=== PATIENT | female | born 1990 | race Caucasian/White ===

== ENCOUNTER → 2020-05-23 11:01 | Outpatient (BNVA) | payer MEDICAID, SELFPAY | PROVIDERS: PCP Internal Medicine; Referring Provider Internal Medicine; Visit Provider Nurse Practitioner | DX: K27.9 Peptic ulcer, site unspecified, unspecified as acute or chronic, without hemorrhage or perforation (principal); B96.81 Helicobacter pylori [H. pylori] as the cause of diseases classified elsewhere; K21.9 Gastro-esophageal reflux disease without esophagitis; K59.04 Chronic idiopathic constipation; R11.0 Nausea; Z79.899 Other long term (current) drug therapy; Z88.0 Allergy status to penicillin | CPT/HCPCS: 99203 ==

== ENCOUNTER → 2020-06-18 11:09 | Outpatient (BNVA) | payer MEDICAID, SELFPAY | PROVIDERS: PCP Internal Medicine; Referring Provider Internal Medicine; Visit Provider Nurse Practitioner | DX: Z76.89 Persons encountering health services in other specified circumstances (principal) ==

== ENCOUNTER → 2020-08-29 11:11 | Outpatient (BNVA) | payer MEDICAID, SELFPAY | PROVIDERS: PCP Internal Medicine; Visit Provider Nurse Practitioner ==

== ENCOUNTER → 2020-12-24 11:46 | Outpatient (BNVA) | payer MEDICAID, SELFPAY | PROVIDERS: Visit Provider Nurse Practitioner ==

== ENCOUNTER → 2021-04-28 10:49 | Outpatient (BNVA) | payer MEDICAID, SELFPAY | PROVIDERS: PCP Registered Nurse Community Health; Visit Provider Nurse Practitioner ==

== ENCOUNTER 2021-05-08 11:03 | Outpatient (REF) | payer MEDICAID, SELFPAY | END 2021-05-08 11:04 | disposition home or self-care (01) | LOC: HO.LAB 11:03 | PROVIDERS: Visit Provider Internal Medicine | DX: Z20.822 Contact with and (suspected) exposure to COVID-19 (principal) | CPT/HCPCS: C9803; U0003; U0005 ==

== ENCOUNTER 2021-08-13 10:02 | Outpatient (REF) | payer MEDICAID, SELFPAY | END 2021-08-13 10:03 | disposition home or self-care (01) | LOC: HO.LAB 10:02 | PROVIDERS: Visit Provider Internal Medicine | DX: Z13.89 Encounter for screening for other disorder (principal) | CPT/HCPCS: C9803 ==

== ENCOUNTER 2022-05-20 14:40 | Outpatient (REF) | payer MEDICAID, SELFPAY ==
[2022-05-20 15:00] LABS: MANUAL DIFF FLAG NO
[2022-05-20 15:25] LABS: Basophils Percent Auto 0.3 % (0-2); Eosinophils Percent Auto 0.4 % (0-4); Hematocrit 41.2 % (37.0-47.0); Hemoglobin 14.1 g/dl (12.0-16.0); Imm Gran Abs Auto 0.04 X10*3/uL (0.00-0.03); Imm Gran Pct Auto 0.4 % (0.0-0.4); Lymphocytes Absolute Auto 2.1 X10*3/uL (1.2-4.9); Lymphocytes Percent Auto 19.9 % (20-40); Mean Corpuscular HGB Conc 34.2 g/dl (31.0-35.0); Mean Corpuscular Hemoglobin 31.6 pg (27.0-33.0); Mean Corpuscular Volume 92.4 fL (80.0-98.0); Mean Platelet Volume 10.5 fL (9.4-12.3); Monocytes Absolute Auto 0.6 X10*3/uL (0.1-1.2); Monocytes Percent Auto 5.8 % (2-11); Neutrophils Absolute Auto 7.6 x10*3/uL (2.0-8.3); Neutrophils Percent Auto 73.2 % (45-73); Platelet Count 242 X10*3/uL (160-400); Red Blood Count 4.46 X10*6/uL (4.20-5.50); White Blood Count 10.4 X10*3/uL (4.8-10.8)
[2022-05-20 15:47] LABS: Alanine Aminotransferase 18 U/L (0-31); Albumin Level 4.8 g/dL (3.5-5.0); Alkaline Phosphatase 70 U/L (39-117); Anion Gap 16 (12-20); Aspartate Amino Transferase 18 U/L (5-31); Bilirubin Total 0.9 mg/dL (0.0-1.0); Blood Urea Nitrogen 7 mg/dL (9-16); Calcium 9.8 mg/dL (8.4-10.2); Carbon Dioxide 24 mmol/L (22-29); Chloride 106 mmol/L (96-108); Estimated Glomerular Filt Rate > 60; Glucose Random 93 mg/dL (60-115); Sodium 142 mmol/L (135-145); Total Protein 7.5 g/dL (6.5-8.0)
== END 2022-05-20 14:41 | disposition home or self-care (01) ==
LOC: HO.LAB 14:40
PROVIDERS: Visit Provider Nurse Practitioner
DX: K58.9 Irritable bowel syndrome, unspecified (principal); K59.04 Chronic idiopathic constipation; K27.9 Peptic ulcer, site unspecified, unspecified as acute or chronic, without hemorrhage or perforation; B96.81 Helicobacter pylori [H. pylori] as the cause of diseases classified elsewhere; K21.9 Gastro-esophageal reflux disease without esophagitis; F11.20 Opioid dependence, uncomplicated
CPT/HCPCS: 36415; 80053; 85025; 99212

== ENCOUNTER 2022-06-23 09:00 | Emergency (ER) | payer MEDICAID, SELFPAY ==
[2022-06-23 09:08] VITALS: BP 111/67; PULSE 54; RESP 18; TEMP 37; O2SAT 100; BMI 34.9
--- NOTE | 2022-06-23 09:42 | ED_ITS ---
HPI - Nausea/Vomiting/Diarrhea General Chief complaint: Nausea/Vomiting/Diarrhea Stated complaint: COVID+/Vomiting Time Seen by Provider: 06/23/22 09:10 Source: patient Mode of arrival: ambulatory Limitations: no limitations History of Present Illness HPI Narrative: 31-year-old female recently diagnosed with COVID presented today for nausea, vomiting for the past 2 days, unable to keep anything down, unable to take her methadone and her medication. Patient is known to have GERD complaining of mild epigastric pain, no diarrhea, no fever, no chills, no coughing. Related Data Home Medications Medication Instructions Recorded Confirmed methadone PO DAILY 12/24/20 hydroxyzine HCl 25 mg tablet 25 mg PO BID PRN 05/20/22 omeprazole 20 mg capsule,delayed 20 mg PO DAILY 05/20/22 release valacyclovir 500 mg tablet 500 mg PO TID 05/20/22 Previous Rx's Medication Instructions Recorded hyoscyamine sulfate 0.125 mg tablet 0.125 mg PO BID-QID PRN dyspepsia 05/20/22 #120 tabs linaclotide 145 mcg capsule 145 mcg PO QAM 30 days #30 caps 05/20/22 (Linzess) promethazine 25 mg tablet 25 mg PO DAILY nausea and vomiting 05/20/22 #30 tabs Allergies Allergy/AdvReac Type Severity Reaction Status Date / Time amoxicillin [AMOXICILLIN] Allergy Intermediate HIVES, Verified 05/20/22 13:51 hives (moderate) ondansetron [Zofran] AdvReac Unknown headaches Verified 05/20/22 13:51 Review of Systems Review of Systems: All other systems are reviewed and are negative Constitutional: Reports as per HPI and Reports no additional constitutional complaints Eyes: Reports as per HPI and Reports no additional eye complaints Reports system reviewed and no additional complaints, except as documented Cardiovascular: Reports as per HPI and Reports no additional cardiovascular complaints Respiratory: Reports as per HPI and Reports no additional respiratory complaints Gastrointestinal: Reports as per HPI and Reports no additional gastrointestinal complaints Genitourinary: Reports no additional female genitourinary complaints Musculoskeletal: Reports no additional musculoskeletal complaints Skin/Breast: Reports system reviewed and no additional complaints, except as docu Psychiatric: Reports no additional psychiatric complaints Endocrine: Reports no additional endocrine complaints Hematologic/Lymphatic: Reports no additional hematologic/lymphatic complaints Allergic/Immunologic: Reports no additional allergic/immunologic complaints Reports system reviewed and no additional complaints, except as documented and Reports Abnormal speech present [facility] Past Medical History Medical History Heroin abuse Surgical History History of esophagogastroduodenoscopy (EGD) Family History Family History Father Throat cancer Tuberculosis Mother No problems noted. Brother Autistic disorder Spina bifida of lumbar spine Paternal Grandmother Breast cancer Social History Social History Household Members: Spouse and Children Alcohol intake: never Smoked in Last 30 Days: Yes Use of substances other than those prescribed or required for medical reasons: No Substance Use Type: Marijuana Advance Directives: No Advance Directives Information Provided: Yes Patient : No service: No Current occupational status: unemployed Physical Exam Vital Signs: Vital Signs: Last Vital Signs Temp 98.6 F 06/23/22 09:08 Pulse 54 06/23/22 09:08 Resp 18 06/23/22 09:08 BP 111/67 06/23/22 09:08 Pulse Ox 100 06/23/22 09:08 O2 Del Method 06/23/22 09:08 BMI result Body Mass Index 34.9 Vital signs have been reviewed as appeared to be correct. Blood pressure normal. Heart rate normal. Respiration rate normal. Temperature normal. Oxygen saturation normal. Appearance: Alert. Oriented X3. No acute distress. Head: Normal external exam. Normocephalic. Atraumatic. No Hoffmann signs noted. No raccoon eyes noted Eyes: PERRLA. EOMI. Conjunctiva and sclera normal. Eyelids normal. ENT: TM's Normal. Pharynx normal. Uvula midline. Moist mucous membranes. No trismus noted. No drooling noted. No muffled voice noted. Neck: Normal inspection. Neck supple. FROM. No adenopathy. Thyroid Normal. No meningeal signs. No neck mass noted. CVS: Normal heart rate and rhythm. Heart sound normal. No murmurs noted. Pulses normal throughout. Respiratory: No respiratory distress. Painless inspiration. Breath sounds normal. No wheezes/rales/rhonchi noted. Chest nontender. No accessory muscle usage noted or decreased air movement noted. Abdomen: Soft and nontender. Bowel sounds normal in all 4 quadrants. No distention noted. No organomegaly noted. No visible injury noted. Back: No CVA tenderness. Full range of motion noted. Skin: Skin warm and dry. Normal skin color. Normal skin turgor. No rashes/lesions/lacerations noted. Extremities: No lower extremity edema. Extremities exhibit normal range of motion. Extremities nontender. Neuro: Oriented X 3. Cranial nerve exam: II-XII are grossly intact No motor deficit. No sensory deficit. Reflexes normal. Course Course Course Narrative: 31-year-old female recently diagnosed with COVID presented today because she is unable to keep p.o. intake and persistent vomiting, patient has difficult IV access after 3 different nurses attempt IV was successfully inserted but patient demanded to take it out, patient insisting not to try another attempt for IV even with ultrasound, patient understand that IV is necessary to treat her dehydration and symptoms. Patient requesting to leave despite knowing downside of leaving without full evaluation and labs assessment, patient will be signing against medical advice patient is awake, alert, oriented x3. Medications Administered Discontinued Medications Generic Name Dose Route Start Last Admin Trade Name Freq PRN Reason Stop Dose Admin Acetaminophen 650 mg 06/23/22 09:32 06/23/22 10:33 Acetaminophen 325 Mg Tablet PO 06/23/22 09:33 650 mg ONCE ONE Administration Al Hydroxide/Mg Hydroxide 30 ml 06/23/22 09:29 06/23/22 10:34 Magnesium Hydrox/Alum Hydrox 30 Ml Oral.Susp PO 06/23/22 09:30 30 ml ONCE ONE Administration MDM - Nausea/Vomiting/Diarrhea Lab Data Result diagrams: 06/23/22 10:51 06/23/22 10:51 Discharge Plan Discharge Clinical Impression: Vomiting Patient Disposition: Left Against Medical Advice Prescriptions: No Action methadone liquid PO DAILY omeprazole 20 mg capsule,delayed release(DR/EC) 20 mg PO DAILY valacyclovir 500 mg tablet 500 mg PO TID hydroxyzine HCl 25 mg tablet 25 mg PO BID PRN hyoscyamine sulfate 0.125 mg tablet 0.125 mg PO BID-QID PRN (Reason: dyspepsia) Qty: 120 3RF promethazine 25 mg tablet 25 mg PO DAILY Qty: 30 3RF Linzess 145 mcg capsule 145 mcg PO QAM 30 Days Qty: 30 3RF
--- NOTE | 2022-06-23 10:00 | PC.NURSE ---
pt is a/o x 4 no sob/reed noted speaks in full sentences. lungs - cta. heart sounds regular. abd soft and non-tender. pt c/o gen muscle pain states pain is 10/10. no edema noted. pt states that she is covid +. pt c/o general malaise 2-3 days.
[2022-06-23] MEDS: Acetaminophen 325 MG TABLET 650 MG PO (10:33)
[2022-06-23] MEDS: Magnesium Hydrox/Alum Hydrox 30 ML ORAL.SUSP PO (10:34)
[2022-06-23 11:27] LABS: Influenza A PCR NEGATIVE (Negative); Influenza B PCR NEGATIVE (Negative); Resp Syncy Virus RNA Qual PCR NEGATIVE (Negative); SARS COV2 PCR INHOUSE POSITIVE (Negative)
== END 2022-06-23 11:31 | disposition home or self-care (01) ==
PROVIDERS: Emergency Provider Emergency Medicine; PCP Registered Nurse Community Health
DX: U07.1 COVID-19 (principal); R11.2 Nausea with vomiting, unspecified
CPT/HCPCS: 0241U; 80048; 80076; 83690; 85025; 99283; 99284

== ENCOUNTER 2023-05-11 18:38 | Emergency (ER) | payer MEDICAID, SELFPAY ==
[2023-05-11 19:42] VITALS: BP 119/71; PULSE 71; RESP 19; TEMP 36.5; O2SAT 100; BMI 31.2
--- NOTE | 2023-05-11 19:43 | ED.ANIMALBIT ---
HPI - Animal Bite General Stated Complaint: Cat bite tp L hand/Swelling Related Data Home Medications Medication Instructions Recorded Confirmed methadone PO DAILY 12/24/20 hydroxyzine HCl 25 mg tablet 25 mg PO BID PRN 05/20/22 omeprazole 20 mg capsule,delayed 20 mg PO DAILY 05/20/22 release valacyclovir 500 mg tablet 500 mg PO TID 05/20/22 Previous Rx's Medication Instructions Recorded hyoscyamine sulfate 0.125 mg tablet 0.125 mg PO BID-QID PRN dyspepsia 05/20/22 #120 tabs linaclotide 145 mcg capsule 145 mcg PO QAM 30 days #30 caps 05/20/22 (Linzess) promethazine 25 mg tablet 25 mg PO DAILY nausea and vomiting 05/20/22 #30 tabs Allergies Allergy/AdvReac Type Severity Reaction Status Date / Time amoxicillin [AMOXICILLIN] Allergy Intermediate HIVES, Verified 05/20/22 13:51 hives (moderate) ondansetron [Zofran] AdvReac Unknown headaches Verified 05/20/22 13:51 PMFSH Past Medical History Medical History Heroin abuse Surgical History History of esophagogastroduodenoscopy (EGD) Family History Family History Father Throat cancer Tuberculosis Mother No problems noted. Brother Autistic disorder Spina bifida of lumbar spine Paternal Grandmother Breast cancer Social History Social History Household Members: Spouse and Children Alcohol intake: never Substance Use Type: Marijuana service: No Current occupational status: unemployed Course Course Course Narrative: This is an RME: Additional HPI, ROS, PE not included below will be deferred to primary provider. This is a [id number]-female, with a hx of opioid use disorder on methadone 120mg, presenting to the emergency department with a complaint of cat bite to left hand x 2 days. The cat was a stray cat - unsure of vaccine status. Reporting significant pain in her left hand, unable to make a fist. Patient reporting that she is much more tired than she normally is. No known fevers or chills. Left hand for family swollen with erythema and warmth. Unable to make a fist. Exquisitely tender. Plan: Labs, xr hand, tdap, rabies series Discharge Plan Discharge Prescriptions: No Action methadone liquid PO DAILY omeprazole 20 mg capsule,delayed release(DR/EC) 20 mg PO DAILY valacyclovir 500 mg tablet 500 mg PO TID hydroxyzine HCl 25 mg tablet 25 mg PO BID PRN hyoscyamine sulfate 0.125 mg tablet 0.125 mg PO BID-QID PRN (Reason: dyspepsia) Qty: 120 3RF promethazine 25 mg tablet 25 mg PO DAILY Qty: 30 3RF Linzess 145 mcg capsule 145 mcg PO QAM 30 Days Qty: 30 3RF
--- NOTE | 2023-05-11 20:25 | MHC.EDTECH ---
Labs and both sets of blood cultures were obtained in triage area sent to lab and patient back to waiting room.
[2023-05-11 20:45] LABS: Alanine Aminotransferase 9 U/L (0-31); Albumin Level 3.9 g/dL (3.5-5.0); Alkaline Phosphatase 63 U/L (39-117); Anion Gap 15 (12-20); Aspartate Amino Transferase 13 U/L (5-31); Bilirubin Direct 0.2 mg/dL (0.0-0.5); Bilirubin Total 0.4 mg/dL (0.0-1.0); Blood Urea Nitrogen 6 mg/dL (9-16); Calcium 9.1 mg/dL (8.4-10.2); Carbon Dioxide 26 mmol/L (22-29); Chloride 103 mmol/L (96-108); Creatinine Clr Calc Pharmacy 126.9; Estimated Glomerular Filt Rate > 60; Glucose Random 79 mg/dL (60-115); Potassium 3.7 mmol/L (3.3-5.1); Sodium 140 mmol/L (135-145); Total Protein 6.5 g/dL (6.5-8.0)
--- NOTE | 2023-05-11 23:06 | PC.NURSE ---
pt reports date of exposure as 05/07/23, pt was feeding stray cats on her porch, tried to pet cat and was bitten. bite report faxed to [employer] [facility], Lot# [id number], Exp: 03/09/2025, 5.9ml given between R/L thigh, pt tolerated well. Rabies Vax given right deltoid per SEP, pt tolerated well. RIG and Rabies VIS education handouts given to pt along with rabies immunization card, photocopied order, and instructions for contacting short stay. pt resting quietly, pending ED provider.
--- NOTE | 2023-05-11 23:28 | PC.NURSE ---
rabies vaccine order set faxed to short stay and pharmacy.
[2023-05-12 00:49] VITALS: BP 136/72; PULSE 63; RESP 20; TEMP 36.6; O2SAT 98
--- NOTE | 2023-05-12 01:01 | ED.ANIMALBIT ---
HPI - Animal Bite General Chief Complaint: Animal Bite Stated Complaint: Cat bite tp L hand/Swelling Time Seen by Provider: 05/12/23 00:41 Source: patient Mode of arrival: ambulatory Limitations: no limitations History of Present Illness HPI narrative: Patient apparently was feeling a stray cat 2 days ago and a brochure her and she bit her on her dorsum of the left hand patient washed the hand orally today she comes as she been having pain and swelling with redness for last 24 hours no fever no chills CT was stray cat unlikely patient can watch the cat. Related Data Home Medications Medication Instructions Recorded Confirmed methadone PO DAILY 12/24/20 hydroxyzine HCl 25 mg tablet 25 mg PO BID PRN 05/20/22 omeprazole 20 mg capsule,delayed 20 mg PO DAILY 05/20/22 release valacyclovir 500 mg tablet 500 mg PO TID 05/20/22 Previous Rx's Medication Instructions Recorded hyoscyamine sulfate 0.125 mg tablet 0.125 mg PO BID-QID PRN dyspepsia 05/20/22 #120 tabs linaclotide 145 mcg capsule 145 mcg PO QAM 30 days #30 caps 05/20/22 (Linzess) promethazine 25 mg tablet 25 mg PO DAILY nausea and vomiting 05/20/22 #30 tabs clindamycin HCl 300 mg capsule 300 mg PO TID #30 caps 05/12/23 doxycycline hyclate 100 mg tablet 100 mg PO BID #20 tabs 05/12/23 ibuprofen 600 mg tablet 600 mg PO Q6H PRN fever or pain 05/12/23 #30 tabs Allergies Allergy/AdvReac Type Severity Reaction Status Date / Time amoxicillin [AMOXICILLIN] Allergy Intermediate HIVES, Verified 05/20/22 13:51 hives (moderate) ondansetron [Zofran] AdvReac Unknown headaches Verified 05/20/22 13:51 Review of Systems Review of Systems: Yes all other systems are reviewed and are negative PMFSH Past Medical History Medical History Heroin abuse Surgical History History of esophagogastroduodenoscopy (EGD) Family History Family History Father Throat cancer Tuberculosis Mother No problems noted. Brother Autistic disorder Spina bifida of lumbar spine Paternal Grandmother Breast cancer Social History Social History Household Members: Spouse and Children Alcohol intake: never Substance Use Type: Marijuana service: No Current occupational status: unemployed Physical Exam ED Vital Signs: Vital Signs - 24 hr 05/12/23 00:49 Temperature 97.8 F Pulse Rate 63 Respiratory Rate 20 Blood Pressure 136/72 Pulse Oximetry 98 Oxygen Delivery Method Room Air BMI result Body Mass Index 31.2 Appearance: Alert. Oriented X3. No acute distress. CVS: Normal heart rate and rhythm. Pulses normal. Respiratory: No respiratory distress. Equal air entry bilateral, Abdomen: Soft and nontender. Skin: Skin warm and dry. Normal skin color. Normal skin turgor. Extremities: No lower extremity edema. No calf tenderness left hand swollen on the dorsum with cat bite no signs of tenosynovitis patient had good passive and active movement of the finger neurovascular intact Neuro: Oriented X 3. No motor deficit. Medications Administered Discontinued Medications Generic Name Dose Route Start Last Admin Trade Name Freq PRN Reason Stop Dose Admin Clindamycin HCl 300 mg 05/12/23 00:59 05/12/23 02:01 Clindamycin Hcl 300 Mg Capsule PO 05/12/23 01:00 300 mg ONCE ONE Administration Diphtheria/Tetanus/Acell Pertussis 0.5 ml 05/11/23 19:46 05/11/23 22:51 Diphth,Pertus(Acell),Tet Adult 0.5 Ml Syringe IM 05/11/23 19:47 Not Given .ONCE ONE Doxycycline Monohydrate 100 mg 05/12/23 00:59 05/12/23 02:01 Doxycycline Monohydrate 100 Mg Capsule PO 05/12/23 01:00 100 mg ONCE ONE Administration Rabies Immune Globulin 1,756 unit 05/11/23 19:49 05/11/23 22:51 Rabies Immune Globulin/Pf 900 Unit/3 Ml Vial 20 unit/kg (1756 unit) 05/11/23 19:50 1,756 unit IM Administration ONCE ONE Rabies Vaccine Human Diploid Cell 1 ml 05/11/23 19:49 05/11/23 22:53 Rabies Vaccine, Human Diploid (Imovax) 1 Ml Vial IM 05/11/23 19:50 1 ml .ONCE ONE Administration Medical Decision Making Medical Decision Making [facility] Narrative: Patient status post can stray cat bite was give rabies vaccination and tetanus shot no signs of tenosynovitis /deep infection x-ray negative for bony involvement will give patient doxycycline clindamycin as patient is allergic to amoxicillin Lab Data [facility] Lab Attestation statement: I reviewed the patient's lab results. 05/11/23 20:18 05/11/23 20:18 Labs: Lab Results 05/11/23 Range/Units 20:18 WBC 8.3 (4.8-10.8) X10*3/uL RBC 3.43 L D (4.20-5.50) X10*6/uL Hgb 11.1 L D (12.0-16.0) g/dl Hct 33.0 L (37.0-47.0) % MCV 96.2 (80.0-98.0) fL MCH 32.4 (27.0-33.0) pg MCHC 33.6 (31.0-35.0) g/dl RDW 13.6 (11.0-16.0) % Plt Count 186 (160-400) X10*3/uL MPV 10.6 (9.4-12.3) fL Immature Gran % (Auto) 0.4 (0.0-0.4) % Neut % (Auto) 62.4 (45-73) % Lymph % (Auto) 25.7 (20-40) % [place] % (Auto) 10.0 (2-11) % Eos % (Auto) 1.1 (0-4) % Baso % (Auto) 0.4 (0-2) % Lymph # (Auto) 2.1 (1.2-4.9) X10*3/uL [place] # (Auto) 0.8 (0.1-1.2) X10*3/uL Eos # (Auto) 0.1 (0.0-0.4) X10*3/uL Baso # (Auto) 0.0 (0.0-0.2) X10*3/uL Abs Immat Gran (auto) 0.03 (0.00-0.03) X10*3/uL Absolute Neuts (auto) 5.2 (2.0-8.3) x10*3/uL Absolute Nucleated RBC 0.000 (0.0-0.012) X10*3/uL Nucleated RBC % (auto) 0.0 (0.0-0.2) /100WBC Sodium 140 (135-145) mmol/L Potassium 3.7 (3.3-5.1) mmol/L Chloride 103 (96-108) mmol/L Carbon Dioxide 26 (22-29) mmol/L Anion Gap 15 (12-20) BUN 6 L (9-16) mg/dL Creatinine 0.71 (0.5-1.4) mg/dL Estim Creat Clear Calc 126.9 Estimated GFR > 60 Random Glucose 79 (60-115) mg/dL Lactic Acid 0.4 L (0.5-2.0) mmol/L Calcium 9.1 D (8.4-10.2) mg/dL Total Bilirubin 0.4 (0.0-1.0) mg/dL Direct Bilirubin 0.2 (0.0-0.5) mg/dL AST 13 (5-31) U/L ALT 9 (0-31) U/L Alkaline Phosphatase 63 (39-117) U/L Total Protein 6.5 (6.5-8.0) g/dL Albumin 3.9 (3.5-5.0) g/dL Discharge Plan Discharge Clinical Impression: Cat bite Patient Disposition: Home, Self-Care Instructions: Animal Bite (ED), Rabies (ED) Additional Instructions: Take antibiotic as prescribed Keep right hand elevated Report to the ER if worsening of the swelling or pain Rabies shot as advised to prevent rabies Prescriptions: New doxycycline hyclate 100 mg tablet 100 mg PO BID Qty: 20 0RF clindamycin HCl 300 mg capsule 300 mg PO TID Qty: 30 0RF ibuprofen 600 mg tablet 600 mg PO Q6H PRN (Reason: fever or pain) Qty: 30 0RF No Action methadone liquid PO DAILY omeprazole 20 mg capsule,delayed release(DR/EC) 20 mg PO DAILY valacyclovir 500 mg tablet 500 mg PO TID hydroxyzine HCl 25 mg tablet 25 mg PO BID PRN hyoscyamine sulfate 0.125 mg tablet 0.125 mg PO BID-QID PRN (Reason: dyspepsia) Qty: 120 3RF promethazine 25 mg tablet 25 mg PO DAILY Qty: 30 3RF Linzess 145 mcg capsule 145 mcg PO QAM 30 Days Qty: 30 3RF Interventions: ED Discharge Assessment Last Done: 05/12/23 02:04 Discharge Date/Time: 05/12/23 02:05
== END 2023-05-12 02:05 | disposition home or self-care (01) ==
PROVIDERS: Physician Assistant Medical; Emergency Provider Internal Medicine
DX: S61.452A Open bite of left hand, initial encounter (principal); M79.642 Pain in left hand; W55.01XA Bitten by cat, initial encounter; Y93.9 Activity, unspecified; Y92.9 Unspecified place or not applicable; Y99.9 Unspecified external cause status; Z23 Encounter for immunization; Z79.899 Other long term (current) drug therapy
CPT/HCPCS: 36415; 73130; 80048; 80076; 83605; 85025; 87040; 90375; 90471; 90675; 96372; 99283; 99284

== ENCOUNTER 2023-05-14 12:47 | Outpatient (REF) | payer MEDICAID, SELFPAY | END 2023-05-14 12:48 | disposition home or self-care (01) | LOC: HO.MDS 12:47 | PROVIDERS: Visit Provider Physician Assistant Medical | DX: Z20.3 Contact with and (suspected) exposure to rabies (principal); S61.452D Open bite of left hand, subsequent encounter; W55.01XD Bitten by cat, subsequent encounter | CPT/HCPCS: 90471; 90675 ==

== ENCOUNTER 2023-05-18 12:43 | Outpatient (REF) | payer MEDICAID, SELFPAY | END 2023-05-18 12:44 | disposition home or self-care (01) | LOC: HO.MDS 12:43 | PROVIDERS: Visit Provider Physician Assistant Medical | DX: Z20.3 Contact with and (suspected) exposure to rabies (principal); T14.8XXD Other injury of unspecified body region, subsequent encounter; W64.XXXD Exposure to other animate mechanical forces, subsequent encounter | CPT/HCPCS: 90471; 90675 ==

== ENCOUNTER 2023-05-25 12:27 | Outpatient (REF) | payer MEDICAID, SELFPAY | END 2023-05-25 12:28 | disposition home or self-care (01) | LOC: HO.MDS 12:27 | PROVIDERS: Visit Provider Physician Assistant Medical | DX: Z20.3 Contact with and (suspected) exposure to rabies (principal); T14.8XXD Other injury of unspecified body region, subsequent encounter; W64.XXXD Exposure to other animate mechanical forces, subsequent encounter | CPT/HCPCS: 90471; 90675 ==

== ENCOUNTER 2023-06-03 23:07 | Emergency (ER) | payer MEDICAID, SELFPAY ==
[2023-06-03 23:27] VITALS: BP 125/77; PULSE 79; RESP 20; TEMP 36.7; O2SAT 99; BMI 30.8
[2023-06-03 23:42] LABS: IDNOW Serial# 08D9AD1C; Strep A Nucleic Acid Positive (Negative)
[2023-06-03 23:49] LABS: COVID-19 Test Negative (Negative); IDNOW Serial# BCCEAD1C
--- NOTE | 2023-06-04 00:58 | ED.GENADULT ---
HPI - General Adult General Chief complaint: General Medical Stated complaint: Sore throat Time Seen by Provider: 06/04/23 00:38 Source: patient, family, RN notes reviewed and old records reviewed Mode of arrival: ambulatory Limitations: no limitations History of Present Illness HPI narrative: 32-year-old female presents for evaluation of a sore throat. She reports that her symptoms started earlier today. Denies any fevers or chills. Her feel liver is here with symptoms that started 3 days ago. Patient denies any cough, shortness of breath or any other symptoms. She is able to swallow. No other complaints or concerns at this time Related Data Home Medications Medication Instructions Recorded Confirmed methadone PO DAILY 12/24/20 hydroxyzine HCl 25 mg tablet 25 mg PO BID PRN 05/20/22 omeprazole 20 mg capsule,delayed 20 mg PO DAILY 05/20/22 release valacyclovir 500 mg tablet 500 mg PO TID 05/20/22 Previous Rx's Medication Instructions Recorded hyoscyamine sulfate 0.125 mg tablet 0.125 mg PO BID-QID PRN dyspepsia 05/20/22 #120 tabs linaclotide 145 mcg capsule 145 mcg PO QAM 30 days #30 caps 05/20/22 (Linzess) promethazine 25 mg tablet 25 mg PO DAILY nausea and vomiting 05/20/22 #30 tabs clindamycin HCl 300 mg capsule 300 mg PO TID #30 caps 05/12/23 doxycycline hyclate 100 mg tablet 100 mg PO BID #20 tabs 05/12/23 ibuprofen 600 mg tablet 600 mg PO Q6H PRN fever or pain 05/12/23 #30 tabs azithromycin 250 mg tablet See Rx Instructions PO .COMPLEX #6 06/04/23 tabs Allergies Allergy/AdvReac Type Severity Reaction Status Date / Time amoxicillin [AMOXICILLIN] Allergy Intermediate HIVES, Verified 05/20/22 13:51 hives (moderate) ondansetron [Zofran] AdvReac Unknown headaches Verified 05/20/22 13:51 Review of Systems Constitutional: Constitutional: Denies chills and Denies fever(s) ENT: Reports sore throat and Denies throat swelling Cardiovascular: Cardiovascular: Denies dyspnea Respiratory: Respiratory: Denies cough and Denies dyspnea Gastrointestinal: Gastrointestinal: Denies vomiting Allergic/Immunologic: Allergic/Immunologic: Denies throat swelling PMFSH Past Medical History Medical History Heroin abuse Surgical History History of esophagogastroduodenoscopy (EGD) Family History Family History Father Throat cancer Tuberculosis Mother No problems noted. Brother Autistic disorder Spina bifida of lumbar spine Paternal Grandmother Breast cancer Social History Social History Household Members: Spouse and Children Alcohol intake: never Substance Use Type: Marijuana Advance Directives: No Advance Directives Information Provided: Yes service: No Current occupational status: unemployed Physical Exam ED Vital Signs: Vital Signs - 24 hr 06/03/23 23:27 Temperature 98.1 F Pulse Rate 79 Respiratory Rate 20 Blood Pressure 125/77 Pulse Oximetry 99 Oxygen Delivery Method Room Air BMI result Body Mass Index 30.8 Const General: healthy appearing, comfortable, no acute distress, alert and awake Nutritional Appearance: well nourished Orientation/consciousness: patient oriented x3 HENMT Other: Mildly erythematous oropharynx, no exudates. Airway is widely patent Head: Yes normocephalic and Yes atraumatic Eyes Eyelids: Yes eyelids normal Conjunctivae: conjunctivae normal Sclerae: sclerae normal Corneas: corneas normal Pupils: Equal, round and reactive pupils present EOM: EOMs intact bilaterally Neck Neck: Yes full ROM Resp Effort & Inspection: normal respiratory effort, able to speak in complete sentences and not labored Skin General skin exam: elasticity normal Neuro General: patient oriented x3 Cranial nerves: Yes Equal, round and reactive pupils present and Yes Bilaterally intact EOM present Cognition (Neuro): normal cognition Extrem Other: Moving all extremities well without any obvious deformities Medical Decision Making Medical Decision Making MDM Narrative: 32-year-old female presents for evaluation of sore throat. She has no evidence of respiratory distress. Airway is widely patent. She does have positive for strep throat. Will treat with azithromycin due to penicillin allergy. Differential Diagnosis Differential Diagnoses: The differential diagnosis associated with the presentation includes Strep pharyngitis Pharyngitis Viral syndrome Upper respiratory infection Lab Data Labs: Lab Results 06/03/23 Range/Units 23:25 COVID-19 (MICAELA) Negative (Negative) COVID-19 Clin Com See Note S. pyogenes GrpA MONIE Positive A (Negative) Discharge Plan Discharge Clinical Impression: Acute streptococcal pharyngitis Patient Disposition: Home, Self-Care Instructions: Strep Throat (ED) Additional Instructions: Take azithromycin as prescribed. Use ibuprofen/Tylenol as needed for pain, fevers. You may also use salt water gargles You should get a new toothbrush after your last dose of antibiotic Return for new or worsening symptoms Prescriptions: New azithromycin 250 mg tablet See Rx Instructions .ROUTE .COMPLEX Qty: 6 0RF Rx Instructions: For 250 mg dose pack: take 500 mg today (day 1), then 250 mg for 4 days (days 2-5) No Action doxycycline hyclate 100 mg tablet 100 mg PO BID Qty: 20 0RF clindamycin HCl 300 mg capsule 300 mg PO TID Qty: 30 0RF ibuprofen 600 mg tablet 600 mg PO Q6H PRN (Reason: fever or pain) Qty: 30 0RF methadone liquid PO DAILY omeprazole 20 mg capsule,delayed release(DR/EC) 20 mg PO DAILY valacyclovir 500 mg tablet 500 mg PO TID hydroxyzine HCl 25 mg tablet 25 mg PO BID PRN hyoscyamine sulfate 0.125 mg tablet 0.125 mg PO BID-QID PRN (Reason: dyspepsia) Qty: 120 3RF promethazine 25 mg tablet 25 mg PO DAILY Qty: 30 3RF Linzess 145 mcg capsule 145 mcg PO QAM 30 Days Qty: 30 3RF
== END 2023-06-04 01:18 | disposition home or self-care (01) ==
PROVIDERS: Emergency Provider Student in an Organized Health Care Education/Training Program
DX: J02.0 Streptococcal pharyngitis (principal); Z11.52 Encounter for screening for COVID-19; Z20.822 Contact with and (suspected) exposure to COVID-19; Z79.899 Other long term (current) drug therapy
CPT/HCPCS: 87635; 87651; 99282; 99283

== ENCOUNTER 2023-11-28 22:31 | Emergency (ER) | payer MEDICAID, SELFPAY ==
[2023-11-28 22:34] VITALS: BP 118/85; PULSE 74; RESP 16; TEMP 37.2; O2SAT 98; BMI 35.1
--- NOTE | 2023-11-28 23:52 | ED.ANIMALBIT ---
HPI - Animal Bite General Chief Complaint: Animal Bite Stated Complaint: bit by her foster dog t-2, hand/ arm swollen Time Seen by Provider: 11/28/23 23:39 Source: patient Mode of arrival: ambulatory Limitations: no limitations History of Present Illness HPI narrative: 33 yo female with PMH of prior immunoglobulin and completed full rabies series after cat bite 05/2023 here eith c/o bite by a foster dog unknown shot series on Wednesday - she notes R hand is more swollen and red. No treatments since then. Can move and squeeze hand but it is painful. complaint: animal bite Onset (ago): day(s) (Wednesday) Animal: dog Description of animal: unknown animal (new fost) Mechanism: bite Location - Extremities: right: hand Pain description: dull Context: unprovoked Associated symptoms: erythema Related Data Home Medications ?Medication ?Instructions ?Recorded ?Confirmed methadone PO DAILY 12/24/20 hydroxyzine HCl 25 mg tablet 25 mg PO BID PRN 05/20/22 omeprazole 20 mg capsule,delayed 20 mg PO DAILY 05/20/22 release valacyclovir 500 mg tablet 500 mg PO TID 05/20/22 Previous Rx's ?Medication ?Instructions ?Recorded hyoscyamine sulfate 0.125 mg tablet 0.125 mg PO BID-QID PRN dyspepsia 05/20/22 #120 tabs linaclotide 145 mcg capsule 145 mcg PO QAM 30 days #30 caps 05/20/22 (Linzess) promethazine 25 mg tablet 25 mg PO DAILY nausea and vomiting 05/20/22 #30 tabs clindamycin HCl 300 mg capsule 300 mg PO TID #30 caps 05/12/23 doxycycline hyclate 100 mg tablet 100 mg PO BID #20 tabs 05/12/23 ibuprofen 600 mg tablet 600 mg PO Q6H PRN fever or pain 05/12/23 #30 tabs azithromycin 250 mg tablet See Rx Instructions PO .COMPLEX #6 06/04/23 tabs clindamycin HCl 150 mg capsule 300 mg (2 x 150 mg) PO TID 7 days 11/29/23 #42 caps doxycycline hyclate 100 mg capsule 100 mg PO BID 7 days #14 caps 11/29/23 Allergies Allergy/AdvReac Type Severity Reaction Status Date / Time amoxicillin [AMOXICILLIN] Allergy Intermediate HIVES, Verified 11/28/23 22:36 hives (moderate) ondansetron [Zofran] AdvReac Unknown headaches Verified 11/28/23 22:36 Review of Systems Review of Systems: Constitutional : No Fever, No Chills ENT/Mouth : No sore throat, No Rhinorrhea Eyes: No Eye Pain, No Swelling, No Redness Cardiovascular : No Chest Pain, No SOB Respiratory : No Cough, No Sputum Gastrointestinal : No Nausea, No Vomiting, No Diarrhea, No abdominal Pain Genitourinary : No Dysuria, No Hematuria Musculoskeletal : No joint pain, No Myalgias, No Joint Swelling Skin : No Skin Lesions, positive skin rash Neuro : No Weakness, No Numbness, No Headache All other systems reviewed and are negative [facility] Past Medical History Attestation statement: The following information was validated with the patient. Source: old records reviewed Medical History Heroin abuse Surgical History History of esophagogastroduodenoscopy (EGD) Family History Family History Father Throat cancer Tuberculosis Mother No problems noted. Brother Autistic disorder Spina bifida of lumbar spine Paternal Grandmother Breast cancer Social History Social History Household Members: Spouse and Children Alcohol intake: never Substance Use Type: Marijuana service: No Current occupational status: unemployed Physical Exam ED Vital Signs: Vital Signs - 24 hr 11/28/23 22:34 Temperature 99.0 F Pulse Rate 74 Respiratory Rate 16 Blood Pressure 118/85 Pulse Oximetry 98 Oxygen Delivery Method Room Air BMI result Body Mass Index 35.1 Appearance: Alert. Oriented X3. No acute distress. Eyes: Pupils equal, round and reactive to light. ENT: Pharynx normal. Neck: Normal inspection. Neck supple. CVS: Normal heart rate and rhythm. Pulses normal. Respiratory: No respiratory distress. Breath sounds normal. Abdomen: Soft and nontender. Skin: Skin warm and dry. Normal skin color. Normal skin turgor. Extremities: No lower extremity edema. R hand dorsum lateral aspect - redness, mild swelling abrasions noted no fluctuance noted no ext onto fingers can full make fist able to flex and extend distal NV intact Neuro: Oriented X 3. No motor deficit. No sensory deficit. Medical Decision Making Medical Decision Making MDM Narrative: 33 yo female R hand dominant on methadone Tdap 2019 here with mild cellulitis from dog bite on Wednesday she is NV intact. She just received RIG and rabies vaccine back in May post cat bite. At this time will give the 2 day series start on clinda and doxy - has tolerated in past and DC home with precautions. no signs of abscess, able to full flex and extend fingers - no extension onto the fingers. No concern for deeper space infection. Differential Diagnosis Differential Diagnoses: The differential diagnosis associated with the presentation includes cellulitis, dog bite, rabies exposure External Record Review External record reviewed: Inpatient record and Outpatient record Prescription Management I considered prescription management with: Antibiotic Discharge Plan Discharge Clinical Impression: Dog bite Qualifiers: Encounter type: initial encounter Qualified Code(s): W54.0XXA - Bitten by dog, initial encounter Cellulitis Qualifiers: Site of cellulitis: extremity Site of cellulitis of extremity: upper extremity Laterality: right Qualified Code(s): L03.113 - Cellulitis of right upper limb Patient Disposition: Home, Self-Care Instructions: Animal Bite (ED), Cellulitis (ED), Rabies (ED) Additional Instructions: finish all antibiotics call the infusion center on Wednesday for next shot which should be November 30 return for worsening redness, swelling, fevers, signs of infection finish all antibiotics more than 6 stools a day is not normal seek help if this happens Prescriptions: New doxycycline hyclate 100 mg capsule 100 mg PO BID 7 Days Qty: 14 0RF clindamycin HCl 150 mg capsule 300 mg PO TID 7 Days Qty: 42 0RF No Action doxycycline hyclate 100 mg tablet 100 mg PO BID Qty: 20 0RF clindamycin HCl 300 mg capsule 300 mg PO TID Qty: 30 0RF ibuprofen 600 mg tablet 600 mg PO Q6H PRN (Reason: fever or pain) Qty: 30 0RF azithromycin 250 mg tablet See Rx Instructions .ROUTE .COMPLEX Qty: 6 0RF Rx Instructions: For 250 mg dose pack: take 500 mg today (day 1), then 250 mg for 4 days (days 2-5) methadone liquid PO DAILY omeprazole 20 mg capsule,delayed release(DR/EC) 20 mg PO DAILY valacyclovir 500 mg tablet 500 mg PO TID hydroxyzine HCl 25 mg tablet 25 mg PO BID PRN hyoscyamine sulfate 0.125 mg tablet 0.125 mg PO BID-QID PRN (Reason: dyspepsia) Qty: 120 3RF promethazine 25 mg tablet 25 mg PO DAILY Qty: 30 3RF Linzess 145 mcg capsule 145 mcg PO QAM 30 Days Qty: 30 3RF Print Language: Khmer
[2023-11-29] MEDS: Doxycycline Monohydrate 100 MG CAPSULE PO (00:01)
[2023-11-29] MEDS: Rabies Vaccine, Human Diploid (Imovax) 1 ML VIAL IM (00:01)
[2023-11-29] MEDS: Clindamycin HCL 150 MG CAPSULE 450 MG PO (00:01)
[2023-11-29 00:20] VITALS: BP 110/58; PULSE 59; RESP 17; TEMP 37.1; O2SAT 96
[2023-11-29 00:26] VITALS: BP 110/58; PULSE 59; RESP 17; TEMP 37.1; O2SAT 96
== END 2023-11-29 00:26 | disposition home or self-care (01) ==
PROVIDERS: Emergency Provider Emergency Medicine
DX: S61.451A Open bite of right hand, initial encounter (principal); L03.113 Cellulitis of right upper limb; W54.0XXA Bitten by dog, initial encounter; Z20.3 Contact with and (suspected) exposure to rabies; Z29.14 Encounter for prophylactic rabies immune globulin; Y93.9 Activity, unspecified; Y92.9 Unspecified place or not applicable; Y99.9 Unspecified external cause status
CPT/HCPCS: 90471; 90675; 99284

== ENCOUNTER 2025-03-10 17:59 | Emergency (ER) | payer MEDICAID, SELFPAY ==
--- NOTE | ~2025-03-10 | US_ITS ---
CLINICAL HISTORY: calf pain, leg swelling Venous duplex ultrasound left lower extremity Comparison: None provided Findings: The visualized deep veins are fully compressible with normal Doppler color flow and spectral tracings. Peroneal veins are partly obscured. Lymph nodes in the left groin region measure 0.7 cm short axis. These are nonspecific and likely reactive. IMPRESSION: 1. Negative for left lower extremity deep vein thrombosis. 2. Peroneal veins are partly obscured at this time. Please consider attention on follow-up, if clinically indicated. This document has been electronically signed by: Ian Hernandez MD on 03/10/2025 19:04:49
--- NOTE | ~2025-03-10 | XR_ITS ---
CLINICAL HISTORY: CP, SOB 2 view chest x-ray Comparison: None provided Findings: No consolidation or effusion. No pneumothorax Heart size is at the upper limits of the normal. Mild osteoarthritis of the imaged left AC joint IMPRESSION: No consolidation This document has been electronically signed by: Ian Hernandez MD on 03/10/2025 19:21:13
[2025-03-10 18:08] VITALS: BP 121/69; PULSE 75; RESP 18; TEMP 37.1; O2SAT 98; BMI 31.7
--- NOTE | 2025-03-10 18:08 | ED.GENADULT ---
HPI - General Adult General Chief complaint: Extremity Problem Stated complaint: left leg swollen/painful Time Seen by Provider: 03/10/25 18:33 Source: patient Mode of arrival: ambulatory History of Present Illness ED Provider: Geovanny LYNN narrative: 34-year-old female who is on methadone, denies any alcohol/drugs but does occasionally smoke cannabis presents with left calf discomfort without redness/swelling, denies any fevers or chills, denies any recent travel, I did review the triage note where she states some shortness of breath and chest discomfort though she does not endorse this symptom at this time. Related Data Home Medications ?Medication ?Instructions ?Recorded ?Confirmed methadone PO DAILY 12/24/20 hydroxyzine HCl 25 mg tablet 25 mg PO BID PRN 05/20/22 omeprazole 20 mg capsule,delayed 20 mg PO DAILY 05/20/22 release valacyclovir 500 mg tablet 500 mg PO TID 05/20/22 Previous Rx's ?Medication ?Instructions ?Recorded hyoscyamine sulfate 0.125 mg tablet 0.125 mg PO BID-QID PRN dyspepsia 05/20/22 #120 tabs linaclotide 145 mcg capsule 145 mcg PO QAM 30 days #30 caps 05/20/22 (Linzess) promethazine 25 mg tablet 25 mg PO DAILY nausea and vomiting 05/20/22 #30 tabs clindamycin HCl 300 mg capsule 300 mg PO TID #30 caps 05/12/23 doxycycline hyclate 100 mg tablet 100 mg PO BID #20 tabs 05/12/23 ibuprofen 600 mg tablet 600 mg PO Q6H PRN fever or pain 05/12/23 #30 tabs azithromycin 250 mg tablet See Rx Instructions PO .COMPLEX #6 06/04/23 tabs clindamycin HCl 150 mg capsule 300 mg (2 x 150 mg) PO TID 7 days 11/29/23 #42 caps doxycycline hyclate 100 mg capsule 100 mg PO BID 7 days #14 caps 11/29/23 Allergies Allergy/AdvReac Type Severity Reaction Status Date / Time amoxicillin (AMOXICILLIN) Allergy Intermediate HIVES, Verified 03/10/25 18:11 hives (moderate) ondansetron (Zofran) AdvReac Unknown headaches Verified 03/10/25 18:11 Review of Systems Review of Systems: Pertinent positives and negatives as stated in HPI [facility] Past Medical History Source: nursing notes reviewed Medical History Heroin abuse Surgical History History of esophagogastroduodenoscopy (EGD) Family History Family History Father Throat cancer Tuberculosis Mother No problems noted. Brother Autistic disorder Spina bifida of lumbar spine Paternal Grandmother Breast cancer Social History Social History Household Members: Spouse and Children Alcohol intake: never Smoked in Last 30 Days: Yes Use of substances other than those prescribed or required for medical reasons: Yes Substance Use Type: Marijuana and Prescription Drugs Advance Directives: No Advance Directives Information Provided: No Patient : No service: No Current occupational status: unemployed Physical Exam ED Exam Exam: VITAL SIGNS: Reviewed. GENERAL: Well developed, well nourished, in no acute distress. HEAD: Normocephalic/atraumatic EYES: PERRLA, EOMI LUNGS: Normal breath sounds. No adventitious sounds or accessory muscle use. SpO2<98> CARDIOVASCULAR: Regular rate and rhythm without noted murmurs, no JVD or lower extremity edema. ABDOMEN: Soft, non-tender, non-distended with bowel sounds. MUSCULOSKELETAL: No tenderness, deformities, or effusions noted on gross inspection. EXTREMITIES: No cyanosis, clubbing or edema. LLE: Symmetrically size when compared to right lower extremity, no erythema/induration, no deformity, palpable DP/PT, capillary refill less than 2 seconds, no palpable cords appreciated, no Homans sign SKIN: Inspection of the skin reveals no rashes NEUROLOGIC: Alert and oriented x 4. Strength and sensation to light touch were grossly intact x 4. Vital Signs: Vital Signs - 24 hr 03/10/25 18:08 03/10/25 19:25 Temperature 98.7 F 98.6 F Pulse Rate 75 59 Respiratory Rate 18 16 Blood Pressure 121/69 Pulse Oximetry 98 98 Oxygen Delivery Method Room Air Room Air BMI result Body Mass Index 31.7 Course Course Course Narrative: This is an RME: Additional HPI, ROS, PE not included below will be deferred to primary provider. RME assessment and note performed by: Meliza Fernandez PA-C This is a [id number], with a hx of GERD, methadone dependence, h. pylori, who presents to the ER with a complaint of left leg pain x months, and swelling which started this morning. Also endorsing some SOB and chest tightness. No hx of IVDA. Plan: labs, ekg, cxr, us, further ER eval needed Medical Decision Making Medical Decision Making [facility] Narrative: 34-year-old female with history and clinical presentation, DD DX: Left calf pain and foot pain without evidence of cellulitis/DVT/vascular compromise/possibility of thrombophlebitis or musculoskeletal pain. I reviewed and interpreted all investigations and there is no leukocytosis, anemia, or thrombocytopenia. There is no demonstrate ARTIE/electrolyte or liver enzyme derangements. I sensitivity troponin is undetectable and BNP is within normal limits. Viral testing is negative for COVID-19/RSV/influenza. My interpretation is in agreement with radiology's impression in the there is no evidence of venous congestion or infiltrate and my interpretation is in agreement with radiology's impression of left lower extremity venous duplex in that there is no evidence for DVT. EKG interpreted by me: Sinus bradycardia, HR-53, no STEMI, GA/QRS/QTC is within normal limits, QTC mildly prolonged likely secondary to current methadone prescription. Patient is otherwise well appearing/nontoxic and hemodynamically stable. She is otherwise discharged and will be treated presumptively for a mild thrombophlebitis. She does not meet inpatient level of care at this time. Differential Diagnosis Differential Diagnoses: The differential diagnosis associated with the presentation includes See above Admission/Observation Consideration of admission/observation: Escalation of care including admission/observation considered Lab Data [facility] Lab Attestation statement: I reviewed the patient's lab results. See above 03/10/25 18:22 03/10/25 18:22 Labs: Lab Results 03/10/25 Range/Units 18:22 WBC 8.3 (4.8-10.8) X10*3/uL RBC 3.85 L (4.20-5.50) X10*6/uL Hgb 12.8 (12.0-16.0) g/dl Hct 36.0 L (37.0-47.0) % MCV 93.5 (80.0-98.0) fL MCH 33.2 H (27.0-33.0) pg MCHC 35.6 H (31.0-35.0) g/dl RDW 14.2 (11.0-16.0) % Plt Count 223 (160-400) X10*3/uL MPV 10.3 (9.4-12.3) fL Immature Gran % (Auto) 0.2 (0.0-0.4) % Neut % (Auto) 69.4 (45-73) % Lymph % (Auto) 22.8 (20-40) % [place] % (Auto) 6.9 (2-11) % Eos % (Auto) 0.5 (0-4) % Baso % (Auto) 0.2 (0-2) % Lymph # (Auto) 1.9 (1.2-4.9) X10*3/uL [place] # (Auto) 0.6 (0.1-1.2) X10*3/uL Eos # (Auto) 0.0 (0.0-0.4) X10*3/uL Baso # (Auto) 0.0 (0.0-0.2) X10*3/uL Abs Immat Gran (auto) 0.02 (0.00-0.03) X10*3/uL Absolute Neuts (auto) 5.7 (2.0-8.3) x10*3/uL Absolute Nucleated RBC 0.000 (0.0-0.012) X10*3/uL Nucleated RBC % (auto) 0.0 (0.0-0.2) /100WBC Sodium 140 (135-145) mmol/L Potassium 4.0 (3.3-5.1) mmol/L Chloride 104 (96-108) mmol/L Carbon Dioxide 28 (22-29) mmol/L Anion Gap 12 (12-20) BUN 7 L (9-16) mg/dL Creatinine 0.78 (0.5-1.4) mg/dL Estim Creat Clear Calc 118.1 Estimated GFR > 60 Random Glucose 100 (60-115) mg/dL Calcium 8.7 (8.4-10.2) mg/dL Magnesium 1.8 (1.6-2.6) mg/dL Total Bilirubin 0.9 (0.0-1.0) mg/dL Direct Bilirubin 0.3 (0.0-0.5) mg/dL AST 19 (5-31) U/L ALT 17 (0-31) U/L Alkaline Phosphatase 72 (39-117) U/L Troponin I High Sens < 2.7 (<3.5-17.0) ng/L B-Natriuretic Peptide 74 (<100) pg/mL Total Protein 6.4 L (6.5-8.0) g/dL Albumin 4.1 (3.5-5.0) g/dL Beta HCG, Quant < 2 mIU/mL Influenza Type A (PCR) NEGATIVE (Negative) Influenza Type B (PCR) NEGATIVE (Negative) RSV RNA Qual (PCR) NEGATIVE (Negative) SARS-CoV-2 RNA (RT-PCR) NEGATIVE (Negative) Independent Interpretation I performed an independent interpretation of an: EKG, Plain X-Ray and Ultrasound Interpretation: See above Radiology Impression Discussion of test interpretation with radiology: I have reviewed the radiologist's reading. Radiologist Impression: See above Discharge Plan Discharge Clinical Impression: Thrombophlebitis Patient Disposition: Home, Self-Care Additional Instructions: Resume all home medications as prescribed. Tylenol 1000 mg, orally, every 6 hours as needed for pain control. Do not exceed 4000 mg within 24 hours. Ibuprofen 400 mg, orally with milk or food, every 6 hours as needed for pain control. Recommend taking with Tylenol for improved symptom relief. Would consider compression stockings for additional symptom relief. Please follow-up with your primary care doctor and do not hesitate to return to the emergency room for any acute worsening of your symptoms. Prescriptions: No Action doxycycline hyclate 100 mg tablet 100 mg PO BID Qty: 20 0RF clindamycin HCl 300 mg capsule 300 mg PO TID Qty: 30 0RF ibuprofen 600 mg tablet 600 mg PO Q6H PRN (Reason: fever or pain) Qty: 30 0RF azithromycin 250 mg tablet See Rx Instructions .ROUTE .COMPLEX Qty: 6 0RF Rx Instructions: For 250 mg dose pack: take 500 mg today (day 1), then 250 mg for 4 days (days 2-5) doxycycline hyclate 100 mg capsule 100 mg PO BID 7 Days Qty: 14 0RF clindamycin HCl 150 mg capsule 300 mg PO TID 7 Days Qty: 42 0RF methadone liquid PO DAILY omeprazole 20 mg capsule,delayed release(DR/EC) 20 mg PO DAILY valacyclovir 500 mg tablet 500 mg PO TID hydroxyzine HCl 25 mg tablet 25 mg PO BID PRN hyoscyamine sulfate 0.125 mg tablet 0.125 mg PO BID-QID PRN (Reason: dyspepsia) Qty: 120 3RF promethazine 25 mg tablet 25 mg PO DAILY Qty: 30 3RF Linzess 145 mcg capsule 145 mcg PO QAM 30 Days Qty: 30 3RF Referrals: [place],[facility] [Primary Care Provider, Medical] Print Language: South African
--- NOTE | 2025-03-10 18:12 | ECG_ITS ---
Test Reason : CHEST TIGHTNESS Blood Pressure : */* mmHG Vent. Rate : 53 BPM Atrial Rate : 53 BPM P-R Int : 138 ms QRS Dur : 98 ms QT Int : 444 ms P-R-T Axes : 37 14 12 degrees QTcB Int : 416 ms Sinus bradycardia with sinus arrhythmia Otherwise normal ECG When compared with ECG of 15-Oct-2017 12:38, Vent. rate has decreased by 30 bpm T wave amplitude has increased in Lateral leads Referred By: Meliza Fernandez Electronically Signed By: DEEPTI MCDONALD
[2025-03-10 18:28] LABS: Hematocrit 36.0 % (37.0-47.0); Hemoglobin 12.8 g/dl (12.0-16.0); Imm Gran Abs Auto 0.02 X10*3/uL (0.00-0.03); Imm Gran Pct Auto 0.2 % (0.0-0.4); Lymphocytes Absolute Auto 1.9 X10*3/uL (1.2-4.9); MANUAL DIFF FLAG NO; Mean Corpuscular HGB Conc 35.6 g/dl (31.0-35.0); Mean Corpuscular Hemoglobin 33.2 pg (27.0-33.0); Mean Corpuscular Volume 93.5 fL (80.0-98.0); NRBC Abs Auto 0.000 X10*3/uL (0.0-0.012); NRBC Pct Auto 0.0 /100WBC (0.0-0.2); Platelet Count 223 X10*3/uL (160-400); Red Blood Count 3.85 X10*6/uL (4.20-5.50); White Blood Count 8.3 X10*3/uL (4.8-10.8)
[2025-03-10 18:46] LABS: B Type Natriuretic Peptide 74 pg/mL (<100)
[2025-03-10 18:49] LABS: Alanine Aminotransferase 17 U/L (0-31); Albumin Level 4.1 g/dL (3.5-5.0); Alkaline Phosphatase 72 U/L (39-117); Anion Gap 12 (12-20); Aspartate Amino Transferase 19 U/L (5-31); Blood Urea Nitrogen 7 mg/dL (9-16); Calcium 8.7 mg/dL (8.4-10.2); Carbon Dioxide 28 mmol/L (22-29); Chloride 104 mmol/L (96-108); Creatinine Clr Calc Pharmacy 118.1; Estimated Glomerular Filt Rate > 60; Magnesium 1.8 mg/dL (1.6-2.6); Potassium 4.0 mmol/L (3.3-5.1); Sodium 140 mmol/L (135-145); Total Protein 6.4 g/dL (6.5-8.0); Troponin-I High Sensitivity < 2.7 ng/L (<3.5-17.0)
[2025-03-10 19:04] LABS: Resp Syncy Virus RNA Qual PCR NEGATIVE (Negative); SARS COV2 PCR INHOUSE NEGATIVE (Negative)
[2025-03-10 19:25] VITALS: PULSE 59; RESP 16; TEMP 37; O2SAT 98
[2025-03-10 20:06] VITALS: BP 111/68; PULSE 59; RESP 16; TEMP 37; O2SAT 98
== END 2025-03-10 20:07 | disposition home or self-care (01) ==
PROVIDERS: Physician Assistant Medical; Emergency Provider Student in an Organized Health Care Education/Training Program
DX: I80.3 Phlebitis and thrombophlebitis of lower extremities, unspecified (principal); M79.662 Pain in left lower leg; R06.02 Shortness of breath; R07.9 Chest pain, unspecified; R00.1 Bradycardia, unspecified; F11.20 Opioid dependence, uncomplicated; Z79.899 Other long term (current) drug therapy; Z03.818 Encounter for observation for suspected exposure to other biological agents ruled out
CPT/HCPCS: 71046; 80048; 80076; 83735; 83880; 84484; 84702; 85025; 87637; 93005; 93971; 99284

== ENCOUNTER → 2025-03-10 18:12 | Outpatient (BNV) | payer MEDICAID, SELFPAY | PROVIDERS: Emergency Provider Student in an Organized Health Care Education/Training Program; Visit Provider Radiology Neuroradiology | DX: M79.662 Pain in left lower leg (principal); R07.9 Chest pain, unspecified | CPT/HCPCS: 71046; 93971 ==

== ENCOUNTER → 2025-03-10 18:12 | Outpatient (BNV) | payer MEDICAID, SELFPAY | PROVIDERS: Emergency Provider Student in an Organized Health Care Education/Training Program; Visit Provider Internal Medicine | DX: R00.1 Bradycardia, unspecified (principal) | CPT/HCPCS: 93010 ==

== ENCOUNTER 2025-06-20 10:58 | Emergency (ER) | payer MEDICAID, SELFPAY ==
--- NOTE | ~2025-06-20 | US_ITS ---
EXAMINATION: US TRIPLEX LOWER EXTREMITY, LEFT CLINICAL INFORMATION: Lower extremity pain and swelling COMPARISON: None available. TECHNIQUE: Color-flow triplex imaging with spectral analysis and compression Doppler were performed on the left lower extremity. FINDINGS: Respiratory variation, normal compression and augmented flow are noted throughout the left lower extremity. The visualized common femoral vein, superficial femoral vein, profunda femoral vein, popliteal vein and midcalf peroneal and posterior tibial venous segments show no evidence of deep venous thrombosis. There is no Worley's cyst. US/US venous duplex LE LT IMPRESSION: No evidence of deep venous thrombosis involving the left lower extremity. Electronically signed by: Micheal Anaya MD 06/20/2025 02:27 PM D[facility]
--- NOTE | ~2025-06-20 | XR_ITS ---
EXAMINATION: XR FOOT 3 OR MORE VIEWS LEFT HISTORY: painful lump COMPARISON: There are no prior studies available for comparison. FINDINGS: Three views of the left foot are submitted. Osseous mineralization is normal. There is no fracture or dislocation. There is mild degenerative change of the intertarsal joints, with joint space narrowing and osteophyte formation. The soft tissues are unremarkable. XR/XR foot LT min 3V IMPRESSION: Mild degenerative change of the intertarsal joints. Electronically signed by: Imer Handley MD 06/20/2025 12:13 PM [facility] GORDILLO
[2025-06-20 11:45] VITALS: BP 116/82; PULSE 59; RESP 18; TEMP 36; O2SAT 100; BMI 32.0
--- NOTE | 2025-06-20 11:46 | ED.LOWEXIN ---
HPI - Extremity Injury (Lower) General Chief Complaint: Extremity Injury, Lower Stated Complaint: Bump on bottom of foot, painful Time Seen by Provider: 06/20/25 12:27 Source: patient Mode of arrival: ambulatory Limitations: no limitations History of Present Illness ED Provider: Dr. Ma HPI Narrative: This is a 34-year-old female presented hospital today for evaluation of bump on her left foot. Patient has noticed this increasing in size. It is more painful. She has had some occasionally numbness in her feet bilaterally. Patient stated that it is difficult for her to ambulate due to the pain that radiates from her left foot up to her thighs. 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 Related Data Home Medications ?Medication ?Instructions ?Recorded ?Confirmed methadone PO DAILY 12/24/20 hydroxyzine HCl 25 mg tablet 25 mg PO BID PRN 05/20/22 omeprazole 20 mg capsule,delayed 20 mg PO DAILY 05/20/22 release valacyclovir 500 mg tablet 500 mg PO TID 05/20/22 Previous Rx's ?Medication ?Instructions ?Recorded hyoscyamine sulfate 0.125 mg tablet 0.125 mg PO BID-QID PRN dyspepsia 05/20/22 #120 tabs linaclotide 145 mcg capsule 145 mcg PO QAM 30 days #30 caps 05/20/22 (Linzess) promethazine 25 mg tablet 25 mg PO DAILY nausea and vomiting 05/20/22 #30 tabs clindamycin HCl 300 mg capsule 300 mg PO TID #30 caps 05/12/23 doxycycline hyclate 100 mg tablet 100 mg PO BID #20 tabs 05/12/23 ibuprofen 600 mg tablet 600 mg PO Q6H PRN fever or pain 05/12/23 #30 tabs azithromycin 250 mg tablet See Rx Instructions PO .COMPLEX #6 06/04/23 tabs clindamycin HCl 150 mg capsule 300 mg (2 x 150 mg) PO TID 7 days 11/29/23 #42 caps doxycycline hyclate 100 mg capsule 100 mg PO BID 7 days #14 caps 11/29/23 prednisone 20 mg tablet 20 mg PO DAILY 7 days #7 tabs 06/20/25 Allergies Allergy/AdvReac Type Severity Reaction Status Date / Time amoxicillin (AMOXICILLIN) Allergy Intermediate HIVES, Verified 06/20/25 11:49 hives (moderate) ondansetron (Zofran) AdvReac Unknown headaches Verified 06/20/25 11:49 Review of Systems Review of Systems: Pertinent review of systems as mentioned in HPI. All other system otherwise negative. [facility] Past Medical History [facility] Narrative: Medical history as mentioned in HPI Medical History Heroin abuse Surgical History History of esophagogastroduodenoscopy (EGD) Family History Family History Father Throat cancer Tuberculosis Mother No problems noted. Brother Autistic disorder Spina bifida of lumbar spine Paternal Grandmother Breast cancer Social History Social History Household Members: Spouse and Children Alcohol intake: never Substance Use Type: Marijuana and Prescription Drugs Advance Directives: No Advance Directives Information Provided: Yes service: No Current occupational status: unemployed Physical Exam Exam: Exam: General: Pleasant, no distress, interacting appropriately Head: Normacephalic, atraumatic Extremities: Swelling noted on dorsal left foot, CMS intact Neurological: Awake and alert, no facial droop noted Skin: Warm and dry Psychiatric: Appropriate mood and thoughts Vital Signs: Vital Signs: Last Vital Signs Temp 96.8 F 06/20/25 11:45 Pulse 67 06/20/25 14:23 Resp 18 06/20/25 14:23 BP 112/76 06/20/25 14:23 Pulse Ox 97 06/20/25 14:23 O2 Del Method Room Air 06/20/25 14:23 BMI result Body Mass Index 32.0 Course Course Course Narrative: This is a Rapid Medical Exam performed in triage by Dior Lujan PA-C. Full HPI, ROS and PE to be performed by primary ED provider. 34 yo F /PMHx heroin abuse, presenting to the ED c/o atraumatic left foot and left lower extremity pain/swelling times months. Admits was seen in our ED for similar symptoms a few months ago PE: +lump to top of L foot, ttp, no fluctuance or induration/overlying erythema. 1+LLE pitting edema Plan: XR, US Medical Decision Making Medical Decision Making MDM Narrative: This is a 34-year-old female presented hospital today for evaluation of left foot swelling on the dorsum aspect. Suspect this is may be osteoarthritis. However on my differential may be more in neuroma. She is tender around the swelling area. There does feel like a bump on the dorsum aspect of her left foot. Ultrasound was obtained did not show any signs of DVT. X-ray was obtained did not show any signs of fracture. She does have intertarsal arthritic changes. We will plan to discharge patient home. We will give her follow up to podiatry clinic. Patient agrees and understands this plan. A bursts prednisone course will be given for possible osteoarthritis flare-up. Differential Diagnosis Differential Diagnoses: The differential diagnosis associated with the presentation includes Osteoarthritis, cellulitis, DVT Discharge Plan Discharge Clinical Impression: Foot swelling, Arthritis Patient Disposition: Home, Self-Care Additional Instructions: Ask the podiatry if this may be a alexander neuroma? This may be osteoarthritis of the intertarsal joint as well. X ray shows degenerative changes. Prescriptions: New prednisone 20 mg tablet 20 mg PO DAILY 7 Days Qty: 7 0RF No Action doxycycline hyclate 100 mg tablet 100 mg PO BID Qty: 20 0RF clindamycin HCl 300 mg capsule 300 mg PO TID Qty: 30 0RF ibuprofen 600 mg tablet 600 mg PO Q6H PRN (Reason: fever or pain) Qty: 30 0RF azithromycin 250 mg tablet See Rx Instructions .ROUTE .COMPLEX Qty: 6 0RF Rx Instructions: For 250 mg dose pack: take 500 mg today (day 1), then 250 mg for 4 days (days 2-5) doxycycline hyclate 100 mg capsule 100 mg PO BID 7 Days Qty: 14 0RF clindamycin HCl 150 mg capsule 300 mg PO TID 7 Days Qty: 42 0RF methadone liquid PO DAILY omeprazole 20 mg capsule,delayed release(DR/EC) 20 mg PO DAILY valacyclovir 500 mg tablet 500 mg PO TID hydroxyzine HCl 25 mg tablet 25 mg PO BID PRN hyoscyamine sulfate 0.125 mg tablet 0.125 mg PO BID-QID PRN (Reason: dyspepsia) Qty: 120 3RF promethazine 25 mg tablet 25 mg PO DAILY Qty: 30 3RF Linzess 145 mcg capsule 145 mcg PO QAM 30 Days Qty: 30 3RF [place] [facility] [place] Group, [place]iatry] Referral Note: Left foot swelling Print Language: Italian
[2025-06-20 14:23] VITALS: BP 112/76; PULSE 67; RESP 18; O2SAT 97
[2025-06-20 15:14] VITALS: BP 112/76; PULSE 67; RESP 18; TEMP -13.3; TEMP 8; O2SAT 97
== END 2025-06-20 15:15 | disposition home or self-care (01) ==
PROVIDERS: Emergency Provider Student in an Organized Health Care Education/Training Program
DX: R60.0 Localized edema (principal); M79.672 Pain in left foot; M19.072 Primary osteoarthritis, left ankle and foot
CPT/HCPCS: 73630; 93971; 99283; 99284

== ENCOUNTER → 2025-06-20 11:49 | Outpatient (BNV) | payer MEDICAID, SELFPAY | PROVIDERS: Emergency Provider Student in an Organized Health Care Education/Training Program; Visit Provider Radiology Diagnostic Radiology | DX: R22.42 Localized swelling, mass and lump, left lower limb (principal); M19.072 Primary osteoarthritis, left ankle and foot | CPT/HCPCS: 73630; 93971 ==

== ENCOUNTER 2025-07-10 22:32 | Emergency (ER) | payer MEDICAID, SELFPAY ==
[2025-07-10 23:04] VITALS: BP 123/80; PULSE 76; RESP 18; TEMP 37.1; O2SAT 97; BMI 30.3
--- NOTE | 2025-07-10 23:09 | ED.BACK ---
HPI - Back Pain/Injury General Chief Complaint: Back Pain/Injury Stated Complaint: Back Pain Related Data Home Medications ?Medication ?Instructions ?Recorded ?Confirmed methadone PO DAILY 12/24/20 hydroxyzine HCl 25 mg tablet 25 mg PO BID PRN 05/20/22 omeprazole 20 mg capsule,delayed 20 mg PO DAILY 05/20/22 release valacyclovir 500 mg tablet 500 mg PO TID 05/20/22 Previous Rx's ?Medication ?Instructions ?Recorded hyoscyamine sulfate 0.125 mg tablet 0.125 mg PO BID-QID PRN dyspepsia 05/20/22 #120 tabs linaclotide 145 mcg capsule 145 mcg PO QAM 30 days #30 caps 05/20/22 (Linzess) promethazine 25 mg tablet 25 mg PO DAILY nausea and vomiting 05/20/22 #30 tabs clindamycin HCl 300 mg capsule 300 mg PO TID #30 caps 05/12/23 doxycycline hyclate 100 mg tablet 100 mg PO BID #20 tabs 05/12/23 ibuprofen 600 mg tablet 600 mg PO Q6H PRN fever or pain 05/12/23 #30 tabs azithromycin 250 mg tablet See Rx Instructions PO .COMPLEX #6 06/04/23 tabs clindamycin HCl 150 mg capsule 300 mg (2 x 150 mg) PO TID 7 days 11/29/23 #42 caps doxycycline hyclate 100 mg capsule 100 mg PO BID 7 days #14 caps 11/29/23 prednisone 20 mg tablet 20 mg PO DAILY 7 days #7 tabs 06/20/25 nitrofurantoin 100 mg PO BID 5 days #10 caps 07/11/25 monohydrate/macrocrystals 100 mg capsule (Macrobid) Allergies Allergy/AdvReac Type Severity Reaction Status Date / Time amoxicillin (AMOXICILLIN) Allergy Intermediate HIVES, Verified 07/10/25 23:05 hives (moderate) ondansetron (Zofran) AdvReac Unknown headaches Verified 07/10/25 23:05 [facility] Past Medical History Medical History Heroin abuse Surgical History History of esophagogastroduodenoscopy (EGD) Family History Family History Father Throat cancer Tuberculosis Mother No problems noted. Brother Autistic disorder Spina bifida of lumbar spine Paternal Grandmother Breast cancer Social History Social History Household Members: Spouse and Children Alcohol intake: never Substance Use Type: Marijuana and Prescription Drugs service: No Current occupational status: unemployed Physical Exam Vital Signs: Vital Signs: Last Vital Signs Temp 98.8 F 07/10/25 23:04 Pulse 76 07/10/25 23:04 Resp 18 07/10/25 23:04 BP 123/80 07/10/25 23:04 Pulse Ox 97 07/10/25 23:04 O2 Del Method Room Air 07/10/25 23:04 BMI result Body Mass Index 30.3 Course Course Course Narrative: 11:09 PM 07/10/2025 (Isabel JERNIGAN): Rapid medical examination performed, full details of HPI, exam, MDM, care plan and disposition deferred to primary provider. Patient is a 34-year-old female presenting to the ED for evaluation of 3 days of atraumatic worsening left low back pain radiating to the left lower extremity, also reports some radiation to left arm, pain worse with movement. 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 No surgical spinal history. Patient also reports urinary frequency and strong odor, history of previous UTIs. Negative CVAT bilaterally, no midline spinous process tenderness, crepitus, or step-off. Ambulates with steady but guarded gait. Ordered for urinalysis and basic labs. No indication for imaging as no recent trauma. Symptoms treated with Tylenol and ibuprofen in triage. Returned to waiting room. Advised to notify staff if worsening symptoms or if considering leaving prior to treatment complete. Medications Administered Discontinued Medications Generic Name Dose Route Start Last Admin Trade Name Freq PRN Reason Stop Dose Admin Acetaminophen 975 mg 07/10/25 23:08 07/10/25 23:11 Acetaminophen 325 Mg Tablet PO 07/10/25 23:09 975 mg ONCE ONE Administration Ibuprofen 600 mg 07/10/25 23:08 07/10/25 23:11 Ibuprofen 600 Mg Tablet PO 07/10/25 23:09 600 mg ONCE ONE Administration Medical Decision Making Lab Data 07/11/25 00:37 07/11/25 00:37 Labs: Lab Results 07/11/25 Range/Units 00:37 WBC 7.7 (4.8-10.8) X10*3/uL RBC 3.88 L (4.20-5.50) X10*6/uL Hgb 12.4 (12.0-16.0) g/dl Hct 36.4 L (37.0-47.0) % MCV 93.8 (80.0-98.0) fL MCH 32.0 (27.0-33.0) pg MCHC 34.1 (31.0-35.0) g/dl RDW 12.6 (11.0-16.0) % Plt Count 211 (160-400) X10*3/uL MPV 10.0 (9.4-12.3) fL Immature Gran % (Auto) 0.5 H (0.0-0.4) % Neut % (Auto) 76.3 H (45-73) % Lymph % (Auto) 16.3 L (20-40) % [place] % (Auto) 5.7 (2-11) % Eos % (Auto) 0.8 (0-4) % Baso % (Auto) 0.4 (0-2) % Lymph # (Auto) 1.3 (1.2-4.9) X10*3/uL [place] # (Auto) 0.4 (0.1-1.2) X10*3/uL Eos # (Auto) 0.1 (0.0-0.4) X10*3/uL Baso # (Auto) 0.0 (0.0-0.2) X10*3/uL Abs Immat Gran (auto) 0.04 H (0.00-0.03) X10*3/uL Absolute Neuts (auto) 5.9 (2.0-8.3) x10*3/uL Absolute Nucleated RBC 0.000 (0.0-0.012) X10*3/uL Nucleated RBC % (auto) 0.0 (0.0-0.2) /100WBC Sodium 138 (135-145) mmol/L Potassium 4.2 (3.3-5.1) mmol/L Chloride 107 (96-108) mmol/L Carbon Dioxide 24 (22-29) mmol/L Anion Gap 11 L (12-20) BUN 7 L (9-16) mg/dL Creatinine 0.87 (0.5-1.4) mg/dL Estim Creat Clear Calc 103.6 Estimated GFR > 60 Random Glucose 83 (60-115) mg/dL Calcium 9.0 (8.4-10.2) mg/dL Total Bilirubin 0.6 (0.0-1.0) mg/dL AST 64 H (5-31) U/L ALT 59 H (0-31) U/L Alkaline Phosphatase 67 (39-117) U/L Total Protein 6.9 (6.5-8.0) g/dL Albumin 4.3 (3.5-5.0) g/dL Urine Color Dark Yellow Urine Appearance Clear Urine pH 5.5 (5.0-9.0) Ur Specific [place] >= 1.030 H (1.005-1.025) Urine Protein Negative (Neg-Trace) mg/dL Urine Glucose (UA) Negative (Negative) mg/dL Urine Ketones Trace (Negative) mg/dL Urine Blood Negative (Negative) Urine Nitrite Negative (Negative) Ur Leukocyte Esterase Trace H (Negative) Urine RBC 0-2 (0-2) /HPF Urine WBC 6-10 H (0-5) /HPF Ur Squamous Epith Cells 6-10 (0-2) /HPF Urine Bacteria 3+ (None Seen) Hyaline Casts 0-2 (0-2) /LPF Urine Test NEGATIVE (NEGATIVE) Discharge Plan Discharge Clinical Impression: Eloped from emergency department, UTI (urinary tract infection) Patient Disposition: Left W/O Completing Treatment Prescriptions: New nitrofurantoin monohyd/m-cryst [Macrobid] 100 mg capsule 100 mg PO BID 5 Days Qty: 10 0RF Rx Instructions: must administer with a meal/food No Action doxycycline hyclate 100 mg tablet 100 mg PO BID Qty: 20 0RF clindamycin HCl 300 mg capsule 300 mg PO TID Qty: 30 0RF ibuprofen 600 mg tablet 600 mg PO Q6H PRN (Reason: fever or pain) Qty: 30 0RF azithromycin 250 mg tablet See Rx Instructions .ROUTE .COMPLEX Qty: 6 0RF Rx Instructions: For 250 mg dose pack: take 500 mg today (day 1), then 250 mg for 4 days (days 2-5) doxycycline hyclate 100 mg capsule 100 mg PO BID 7 Days Qty: 14 0RF clindamycin HCl 150 mg capsule 300 mg PO TID 7 Days Qty: 42 0RF prednisone 20 mg tablet 20 mg PO DAILY 7 Days Qty: 7 0RF methadone liquid PO DAILY omeprazole 20 mg capsule,delayed release(DR/EC) 20 mg PO DAILY valacyclovir 500 mg tablet 500 mg PO TID hydroxyzine HCl 25 mg tablet 25 mg PO BID PRN hyoscyamine sulfate 0.125 mg tablet 0.125 mg PO BID-QID PRN (Reason: dyspepsia) Qty: 120 3RF promethazine 25 mg tablet 25 mg PO DAILY Qty: 30 3RF Linzess 145 mcg capsule 145 mcg PO QAM 30 Days Qty: 30 3RF Discharge Date/Time: 07/11/25 04:18
[2025-07-11 00:44] LABS: MANUAL DIFF FLAG NO
[2025-07-11 00:47] LABS: Hematocrit 36.4 % (37.0-47.0); Hemoglobin 12.4 g/dl (12.0-16.0); Imm Gran Abs Auto 0.04 X10*3/uL (0.00-0.03); Imm Gran Pct Auto 0.5 % (0.0-0.4); Lymphocytes Absolute Auto 1.3 X10*3/uL (1.2-4.9); Mean Corpuscular HGB Conc 34.1 g/dl (31.0-35.0); Mean Corpuscular Hemoglobin 32.0 pg (27.0-33.0); Mean Corpuscular Volume 93.8 fL (80.0-98.0); NRBC Abs Auto 0.000 X10*3/uL (0.0-0.012); NRBC Pct Auto 0.0 /100WBC (0.0-0.2); Platelet Count 211 X10*3/uL (160-400); Red Blood Count 3.88 X10*6/uL (4.20-5.50); White Blood Count 7.7 X10*3/uL (4.8-10.8)
[2025-07-11 00:48] LABS: Appearance Urine Clear; Glucose Urine UA Negative (Negative); PH 5.5 (5.0-9.0); Specific Gravity - Urine >= 1.030 (1.005-1.025); UMIC TRIGGER UACC YES
[2025-07-11 00:50] LABS: UACC Culture Trigger YES
[2025-07-11 00:54] LABS: UPreg QC Valid YES
[2025-07-11 01:00] LABS: Alanine Aminotransferase 59 U/L (0-31); Albumin Level 4.3 g/dL (3.5-5.0); Alkaline Phosphatase 67 U/L (39-117); Anion Gap 11 (12-20); Aspartate Amino Transferase 64 U/L (5-31); Blood Urea Nitrogen 7 mg/dL (9-16); Calcium 9.0 mg/dL (8.4-10.2); Carbon Dioxide 24 mmol/L (22-29); Chloride 107 mmol/L (96-108); Creatinine Clr Calc Pharmacy 103.6; Estimated Glomerular Filt Rate > 60; Potassium 4.2 mmol/L (3.3-5.1); Sodium 138 mmol/L (135-145); Total Protein 6.9 g/dL (6.5-8.0)
--- OUTSIDE RECORDS SUMMARY | 2025-07-11 04:20 | XMS_ITS | Clinical Summary ---
Author Organization [facility] it Address [address] [place] [address] Care Team Providers Care Processor Solid Propellant Name Role Phone Fede Funke FELICITY Primary Care Provider [phone] Surgical History Surgery Date Site/Laterality Comments OTHER SURGICAL HISTORY PROCEDURE: DENIES PREVIOUS SURGERY Medical History Medical History Date Comments Anxiety DX:Anxiety Heroin use DX:Heroin use; C OMMENT: 5 bags a day Pyelonephritis DX:Pyelonephriti s Family History Medical History Relation Name Comments Breast cancer Paternal Grandmother Relation Name Status Comments Paternal Grandmother Social History Tobacco Use Types Packs/Day Years Used Date Smoking Tobacco: Former Cigarettes Smokeless Tobacco: Never Alcohol Use Standard Drinks/Week Comments No 0 (1 standard drink = 0.6 oz pur e alcohol) Comments Unknown Sex and Gender Information Value Date Recorded Sex Assigned at Not on file Legal Sex Female 3:38 AM EST Gender Identity Not on file Sexual Orientation Not on file Plan of Treatment Health Maintenance Due Date Last Done Comments DTaP,Tdap,and Td Vaccines (1 - Tdap) 2009 Hepatitis B Vaccines (1 of 3 - 19+ 3-dose series) 2009 Cervical Cancer Screening: P ap Smear 10/16/2011 HPV Vaccines (1 - 3-dose SCD M series) 2017 Depression Screening 08/02/2024 COVID-19 Vaccine (2024-2 6 season) 2025 Influenza Vaccine (#1) 2025 RSV Immunization Adult Patie nts (1 - 1-dose 75+ series) 2065 HIB Vaccines Aged Out No longer eligi ble based on patient's age to complete this topic Hepatitis A Vaccines Aged Out No long er eligible based on patient's age to complete this topic IPV Vaccines Aged Out No longer eligi ble based on patient's age to complete this topic MMR Vaccines Aged Out No longer eligi ble based on patient's age to complete this topic Meningococcal ACWY Vaccine Aged Out N o longer eligible based on patient's age to complete this topic Meningococcal B Vaccine Aged Out No l onger eligible based on patient's age to complete this topic Pneumococcal Vaccine: Pediat rics (0 to 5 Years) and At-Risk Patients (6 to 49 Years) Aged Out No longer eligible b ased on patient's age to complete this topic RSV Immunization Patients Un geraldo 20 months Aged Out No longer eligible b ased on patient's age to complete this topic Varicella Vaccines Aged Out No longer eligible based on patient's age to complete this topic Care Teams Processor Solid Propellant Relationship Specialty Start Date End Date Sarahi Funk NP [address] [place] [phone] PCP - General 10/06/16
--- OUTSIDE RECORDS SUMMARY | 2025-07-11 04:20 | XMS_ITS | Encounter Summary ---
Author Organization [employer] Address [address] [facility] [address] [place] [address] Care Team Providers Care Drop Wire Builder Name Role Phone Unavailable Primary Care Provider Unavailabl e Encounter Details Date Type Department Care Team (Late st Contact Info) Description 06/22/2025 Results Follow-Up [facility] [address] [place] [address] External Provider, [facility] XR Foot 3+ Views Left, Lower Extremity Venous Duplex Social History Tobacco Use Types Packs/Day Years Used Date Smoking Tobacco: Never Assessed Comments Unknown Sex and Gender Information Value Date Recorded Sex Assigned at Female 06/01/2022 10:28 AM EDT Legal Sex Female 10:28 AM EDT Gender Identity Female 06/01/2022 10:28 AM EDT Sexual Orientation Straight 06/01/2022 10 :28 AM EDT documented as of this encounter Plan of Treatment Not on file documented as of this encounter Visit Diagnoses Not on filedocumented in this encounter Care Teams Drop Wire Builder Relationship Specialty Start Date End Date Rupinder Green Classified Ad TakerBoil Off Worker 04/20/24 documented as of this encounter
--- OUTSIDE RECORDS SUMMARY | 2025-07-11 04:20 | XMS_ITS | Encounter Summary ---
Author Organization [email or web address] Address [address] [facility] [address] [place] [address] Care Team Providers Care Monkey Breeder Name Role Phone Unavailable Primary Care Provider Unavailabl e Encounter Details Date Type Department Care Team ([facility] st Contact Info) Description 07/11/2025 Orders Only GENERIC EXTERNAL DATA DEPARTMENT Provider, Generic External Data Social History Tobacco Use Types Packs/Day Years [...] on file documented as of this encounter Procedures Procedure Name Priority Date/Time Associated Diagnosis Comments URINALYSIS, COMPLETE, WITH REFLEX TO CULTURE Routine 07/11/2025 12:37 AM EST CBC WITH AUTO DIFFERENTIAL Routine 07/11/2025 12:37 AM EST HCG, QL, URINE Routine 07/11/2025 12:37 AM EST COMPREHENSIVE METABOLIC PANEL Routine 07/11/2025 12:37 AM EST documented in this encounter Results * (ABNORMAL) Comprehensive Metabolic Panel (07/11/2025 12:37 AM EST) Sodium 138 135 - 145 mmol/L [facility] Potassium 4.2 3.3 - 5.1 mmol/L [facility] Chloride 107 96 - 108 mmol/L [facility] Carbon Dioxide 24 22 - 29 mmol/L [facility] Anion Gap 11(L) 12 - 20 [facility] Urea Nitrogen (BUN) 7(L) 9 - 16 mg/dL [facility] Creatinine, Serum 0.87 0.5 - 1.4 mg/dL [facility] Creatinine Clr Calc Pharmacy 103.6 [facility] Comment:Provided height and weight: 170.18 cm,87.8 kg.eGFR (calculated from the MDRD study equation) and eCrCl(calculated from the Cockcroft-Gault equation) are based ondifferent parameters and may not yield comparable results.If eCrCl result is absurd, please check patient'sheight/weight. Estimated Glomerular Filt Rate >60 [facility] Comment:Chronic Kidney Disea se: Estimated GFR < 60 mL/min/1.50v7Wfxolg Kidney Disease: Estimated GFR < 15 mL/min/1.73m2 Glucose 83 60 - 115 mg/dL [facility] Calcium 9.0 8.4 - 10.2 mg/dL [facility] Bilirubin, Total 0.6 0.0 - 1.0 mg/dL [facility] Aspartate Amino Transferase 64(H) 5 - 31 U/L [facility] Alanine Aminotransferase 59(H) 0 - 31 U/L [facility] Total Protein 6.9 6.5 - 8.0 g/dL [facility] Albumin Level 4.3 3.5 - 5.0 g/dL [facility] Alkaline Phosphatase 67 39 - 117 U/L [facility] 07/11/2025 12:3 7 AM EST 07/11/2025 12:41 AM EST us Generic External Data Provider LAB BLOOD ORDERAB LES Final Result [facility] [address] [place] [address] [phone] * HCG, Qualitative, Urine (07/11/2025 12:37 AM EST) Urine NEGATIVE NEGATIVE [facility] Comment:This test was develo ped to detect early . Falsenegative results may occur after the 5th - 7th week ofpregnancy when using this test method. If clinicallyindicated, consider a serum hCG. 07/11/2025 12:3 7 AM EST 07/11/2025 12:41 AM EST us Generic External Data Provider LAB URINE ORDERAB LES Final Result [facility] [address] [place] [address] [phone] * (ABNORMAL) Urinalysis, Complete, with Reflex to Culture (07/11/2025 12:37 AM EST) Color Urine Dark Yellow [facility] Appearance Urine Clear [facility] PH 5.5 5.0 - 9.0 [facility] Glucose Urine UA Negative Negative mg/dL [facility] Urine Blood Negative Negative [facility] Specific [place] - Urine >=1.030(H) 1.005 - 1.025 [facility] Urine Protein Negative Neg-Trace mg/dL [facility] Urine Ketones Trace Negative mg/dL [facility] Nitrite Urine Negative Negative [facility] Leukocyte Esterase Urine Trace(A) Negative [facility] RBC Urine 0-2 0 - 2 /HPF [facility] Urine WBC 6-10(A) 0 - 5 /HPF [facility] Urine Squamous Epithelial Cell 6-10 0 - 2 /HPF [facility] Urine Bacteria 3+ None Seen [facility] Hyaline Casts, Urine 0-2 0 - 2 /LPF [facility] 07/11/2025 12:3 7 AM EST 07/11/2025 12:41 AM EST Narrative [facility] - 07/11/2025 1:31 AM EST Urine, Clean Catch us Generic External Data Provider LAB URINE ORDERAB LES Final Result [facility] [address] [place] [address] [phone] * (ABNORMAL) CBC auto differential (07/11/2025 12:37 AM EST) White Blood Count 7.7 4.8 - 10.8 X10*3/uL [facility] Red Blood Count 3.88(L) 4.20 - 5.50 X10*6/uL [facility] Hemoglobin 12.4 12.0 - 16.0 g/dl [facility] Hematocrit 36.4(L) 37.0 - 47.0 % [facility] Mean Corpuscular Volume 93.8 80.0 - 98.0 fL [facility] Mean Corpuscular Hemoglobin 32.0 27.0 - 33.0 pg [facility] Mean Corpuscular HGB Conc 34.1 31.0 - 35.0 g/dl [facility] Red Cell Distribution Width 12.6 11.0 - 16.0 % [facility] Platelet Count 211 160 - 400 X10*3/uL [facility] Mean Platelet Volume 10.0 9.4 - 12.3 fL [facility] Neutrophils Percent Auto 76.3(H) 45 - 73 % [facility] Imm Gran Pct Auto 0.5(H) 0.0 - 0.4 % [facility] Lymphocytes Percent Auto 16.3(L) 20 - 40 % [facility] Monocytes Percent Auto 5.7 2 - 11 % [facility] Eosinophils Percent Auto 0.8 0 - 4 % [facility] Basophils Percent Auto 0.4 0 - 2 % [facility] NRBC Pct Auto 0.0 0.0 - 0.2 /100WBC [facility] Neutrophils Absolute Auto 5.9 2.0 - 8.3 x10*3/uL [facility] Imm Gran Abs Auto 0.04(H) 0.00 - 0.03 X10*3/uL [facility] Lymphocytes Absolute Auto 1.3 1.2 - 4.9 X10*3/uL [facility] Monocytes Absolute Auto 0.4 0.1 - 1.2 X10*3/uL [facility] Eosinophils Absolute Auto 0.1 0.0 - 0.4 X10*3/uL [facility] Basophils Absolute Auto 0.0 0.0 - 0.2 X10*3/uL [facility] NRBC Abs Auto 0.000 0.0 - 0.012 X10*3/uL [facility] 07/11/2025 12:3 7 AM EST 07/11/2025 12:41 AM EST us Generic External Data Provider LAB BLOOD ORDERAB LES Final Result Performing Organization Address City/State/[facility] Co de Phone Number [facility] [address] [place] [address] [phone] documented in this encounter Visit Diagnoses Not on filedocumented in this encounter Care Teams Monkey Breeder Relationship Specialty Start Date End Date Rupinder Green Supervisor Lamp ShadesRail Car Painter/Sandblaster 04/20/24 documented as of this encounter
--- OUTSIDE RECORDS SUMMARY | 2025-07-11 04:20 | XMS_ITS | Clinical Summary ---
Author Organization [employer] Address [address] [facility] [address] [place] [address] Care Team Providers Care Safety Patrol Officer Name Role Phone Unavailable Primary Care Provider Unavailabl e Medications omeprazole (PriLOSEC) [address] Regan ns:Gastroesophag eal reflux disease without esophagitis take 1 capsule by oral route every day before a meal 90 capsule 3 Active valACYclovir (Valtrex) 500 MG tablet TAKE 1 TABLET BY ORAL ROUTE 2 TIMES EVERY DAY X 3 DAYS AT FIRST SIGN OF OUTBREAK 18 tablet 4 Active Encounters Date Type Department Care Team Description 07/11/2025 Orders Only GENERIC EXTERNAL DATA DEPARTMENT Provider, Generic External Data 06/22/2025 Results Follow-Up [facility] [address] [place] [phone] External Provider, [facility] XR Foot 3+ Views Left, Lower Extremity Venous Duplex 06/20/2025 Orders Only [facility] External Provider, [facility] from Last 3 Months Social History Tobacco Use Types Packs/Day Years Used Date Smoking Tobacco: Never Assessed Comments Unknown Sex and Gender Information Value Date Recorded Sex Assigned at Female 06/01/2022 10:28 AM EDT Legal Sex Female 10:28 AM EDT Gender Identity Female 06/01/2022 10:28 AM EDT Sexual Orientation Straight 06/01/2022 10 :28 AM EDT Last Filed Vital Signs Vital Sign Reading Time Taken Comments Blood Pressure 140/78 05/18/2022 12:10 AM EDT Pulse 72 05/18/2022 12:10 AM EDT Temperature - - Respiratory Rate - - Oxygen Saturation - - Inhaled Oxygen Concentration - - Weight 93.9 kg (207 lb) 05/18/2022 12:10 AM EDT Height 165.1 cm (5' 5 ) 05/18/2022 12:10 AM EDT Body Mass Index 34.45 05/18/2022 12:10 AM EDT Plan of Treatment Health Maintenance Due Date Last Done Comments Depression Screening 1990 HIV Screening 1990 Lipid Panel 1990 SDOH Screening 1990 Disability Screening 1990 Alcohol/Substance Use Screening 2002 Tobacco Screening 2002 Family Planning (PISQ) 2005 HPV Vaccines (1 - 3-dose series) 2005 Hepatitis C Screening 2008 Hepatitis B Vaccines (1 of 3 - 19+ 3-dose series) 2009 Pap Smear 10/16/2011 Cervical Cancer Screening 2020 HPV/Cotest 2020 COVID-19 Vaccine (1 - 2024-2 6 season) 2025 Influenza Vaccine (#1) 2025 06/13/2018 DTaP/Tdap/Td Vaccines (2 - T d or Tdap) 03/04/2030 03/04/2020 Zoster Vaccines (1 of 2) 2040 RSV Patients and Pa tients Aged 60 years or older (1 - 1-dose 75+ series) 2065 HIB [...] patient's age to complete this topic Meningococcal Vaccine Aged Out No jovanny cate eligible based on patient's age to complete this topic Pneumococcal Vaccine: Pediat rics (0 to 5 Years) and At-Risk Patients (6 to 49) Years Aged Out No longer eligi ble based on patient's age to complete this topic RSV under 20 months Aged Out No longe r eligible based on patient's age to complete this topic Rotavirus Vaccines Aged Out No longer eligible based on patient's age to complete this topic Procedures Procedure Name Priority Date/Time Associated Diagnosis Comments COMPREHENSIVE METABOLIC PANEL Routine 07/11/2025 12:37 AM EST HCG, QL, URINE Routine 07/11/2025 12:37 AM EST URINALYSIS, COMPLETE, WITH REFLEX TO CULTURE Routine 07/11/2025 12:37 AM EST CBC WITH AUTO DIFFERENTIAL Routine 07/11/2025 12:37 AM EST LOWER EXTREMITY VENOUS DUPLEX LEFT Routine 06/20/2025 2:00 PM EST XR FOOT 3+ VIEWS LEFT Routine 06/20/2025 12:05 PM EST from Last 3 Months Results * (ABNORMAL) Urinalysis, Complete, with Reflex to Culture (07/11/2025 12:37 AM EST) Color Urine Dark Yellow [facility] Appearance Urine Clear [facility] PH 5.5 5.0 - 9.0 [facility] Glucose Urine UA Negative Negative mg/dL [facility] Urine Blood Negative Negative [facility] Specific [place] - Urine >=1.030(H) 1.005 - 1.025 [facility] Urine Protein Negative Neg-Trace mg/dL [facility] Urine Ketones Trace Negative mg/dL [facility] Nitrite Urine Negative Negative [facility] Leukocyte Esterase Urine Trace(A) Negative [facility] RBC Urine 0-2 0 - 2 /HPF [facility] Urine WBC 6-10(A) 0 - 5 /HPF [facility] Urine Squamous Epithelial Cell 6-10 0 - 2 /HPF [facility] Urine Bacteria 3+ None Seen [facility] Hyaline Casts, Urine 0-2 0 - 2 /LPF [facility] 07/11/2025 12:3 7 AM EST 07/11/2025 12:41 AM EST Narrative [facility] - 07/11/2025 1:31 AM EST Urine, Clean Catch us Generic External Data Provider LAB URINE ORDERAB LES Final Result [facility] [address], [place] [phone] * (ABNORMAL) CBC auto differential (07/11/2025 12:37 AM EST) White Blood Count 7.7 4.8 - 10.8 X10*3/uL [facility] Red Blood Count 3.88(L) 4.20 - 5.50 X10*6/uL [facility] Hemoglobin 12.4 12.0 - 16.0 g/dl [facility] Hematocrit 36.4(L) 37.0 - 47.0 % [facility] Mean Corpuscular Volume 93.8 80.0 - 98.0 fL [facility] Mean Corpuscular Hemoglobin 32.0 27.0 - 33.0 pg [facility] Mean Corpuscular HGB Conc 34.1 31.0 - 35.0 g/dl [facility] Red Cell Distribution Width 12.6 11.0 - 16.0 % [facility] Platelet Count 211 160 - 400 X10*3/uL [facility] Mean Platelet Volume 10.0 9.4 - 12.3 fL [facility] Neutrophils Percent Auto 76.3(H) 45 - 73 % [facility] Imm Gran Pct Auto 0.5(H) 0.0 - 0.4 % [facility] Lymphocytes Percent Auto 16.3(L) 20 - 40 % [facility] Monocytes Percent Auto 5.7 2 - 11 % [facility] Eosinophils Percent Auto 0.8 0 - 4 % [facility] Basophils Percent Auto 0.4 0 - 2 % [facility] NRBC Pct Auto 0.0 0.0 - 0.2 /100WBC [facility] Neutrophils Absolute Auto 5.9 2.0 - 8.3 x10*3/uL [facility] Imm Gran Abs Auto 0.04(H) 0.00 - 0.03 X10*3/uL [facility] Lymphocytes Absolute Auto 1.3 1.2 - 4.9 X10*3/uL [facility] Monocytes Absolute Auto 0.4 0.1 - 1.2 X10*3/uL [facility] Eosinophils Absolute Auto 0.1 0.0 - 0.4 X10*3/uL [facility] Basophils Absolute Auto 0.0 0.0 - 0.2 X10*3/uL [facility] NRBC Abs Auto 0.000 0.0 - 0.012 X10*3/uL [facility] 07/11/2025 12:3 7 AM EST 07/11/2025 12:41 AM EST Generic External Data Provider LAB BLOOD ORDERAB LES Final Result Performing Organization Address [facility] de Phone Number [facility] [address] [place] [address] [phone] * HCG, Qualitative, Urine (07/11/2025 12:37 AM EST) Urine NEGATIVE NEGATIVE [facility] Comment:This test was develo ped to detect early . Falsenegative results may occur after the 5th - 7th week ofpregnancy when using this test method. If clinicallyindicated, consider a serum hCG. 07/11/2025 12:3 7 AM EST 07/11/2025 12:41 AM EST Generic External Data Provider LAB URINE ORDERAB LES Final Result Performing Organization Address [facility] de Phone Number [facility] [address] [place] [address] [phone] * (ABNORMAL) Comprehensive Metabolic Panel (07/11/2025 12:37 AM EST) Pathologist [facility] Sodium 138 135 - 145 mmol/L [facility] Potassium 4.2 3.3 - 5.1 mmol/L [facility] Chloride 107 96 - 108 mmol/L [facility] Carbon Dioxide 24 22 - 29 mmol/L [facility] Anion Gap 11(L) 12 - 20 [facility] Urea Nitrogen (BUN) 7(L) 9 - 16 mg/dL [facility] Creatinine, Serum 0.87 0.5 - 1.4 mg/dL [facility] Creatinine Clr Calc Pharmacy 103.6 [facility] Comment:Provided height and weight: 170.18 cm,87.8 kg.eGFR (calculated from the MDRD study equation) and eCrCl(calculated from the Cockcroft-Gault equation) are based ondifferent parameters and may not yield comparable results.If eCrCl result is absurd, please check patient'sheight/weight. Estimated Glomerular Filt Rate >60 [facility] Comment:Chronic Kidney Disea se: Estimated GFR < 60 mL/min/1.70n5Occkkm Kidney Disease: Estimated GFR < 15 mL/min/1.73m2 Glucose 83 60 - 115 mg/dL [facility] Calcium 9.0 8.4 - 10.2 mg/dL [facility] Bilirubin, Total 0.6 0.0 - 1.0 mg/dL [facility] Aspartate Amino Transferase 64(H) 5 - 31 U/L [facility] Alanine Aminotransferase 59(H) 0 - 31 U/L [facility] Total Protein 6.9 6.5 - 8.0 g/dL [facility] Albumin Level 4.3 3.5 - 5.0 g/dL [facility] Alkaline Phosphatase 67 39 - 117 U/L [facility] 07/11/2025 12:3 7 AM EST 07/11/2025 12:41 AM EST us Generic External Data Provider LAB BLOOD ORDERAB LES Final Result [facility] [address] [place] [phone] * Lower Extremity Venous Duplex (06/20/2025 2:00 PM EST) 06/20/2025 2:00 PM EST Narrative [facility] - 06/20/2025 2:30 PM EST [address] [address] Ultrasound Report Signed Patient: Sue Santoro MR#: [id number] 0515 : 1990 Acct:[id number] Age/Sex: 34 / F ADM Date: 06/20/25 Loc: HO.ED Attending Dr: Ordering Physician: Dior Lujan Date of Service: 06/20/25 Procedure(s): US venous duplex LE LT Accession Number(s): [id number] cc: [facility]; Dior Lujan Reason for Exam: LE pain/swelling EXAMINATION: US TRIPLEX LOWER EXTREMITY, LEFT CLINICAL INFORMATION: Lower extremity pain and swelling COMPARISON: None available. TECHNIQUE: Color-flow triplex imaging with spectral analysis and compression Doppler were performed on the left lower extremity. FINDINGS: Respiratory variation, normal compression and augmented flow are noted throughout the left lower extremity. The visualized common femoral vein, superficial femoral vein, profunda femoral vein, popliteal vein and midcalf peroneal and posterior tibial venous segments show no evidence of deep venous thrombosis. There is no Worley's cyst. US/US venous duplex LE LT IMPRESSION: No evidence of deep venous thrombosis involving the left lower extremity. Electronically signed by: Micheal Anaya MD 06/20/2025 02:[address] [facility] Dictated By: Micheal Anaya MD Signed By: <Electronically signed by Micheal Anaya MD in OV> 06/20/25 1427 DD/ 1400 TD/TT: 06/20/25 1420 [employer] Developer: Procedure Note Donotuseinterpreter, Image - 06/20/[address] [address] Ultrasound Report Signed Patient: Clemencia SantoroR#: [id number] 0515 : 1990Acct:[id number] Age/Sex: 34 / FADM Date: 06/20/25 Loc: HO.ED Attending Dr: Ordering Physician: Dior Lujan Date of Service: 06/20/25 Procedure(s): US venous duplex LE LT Accession Number(s): [id number] cc: [facility]; Dior Lujan Reason for Exam: LE pain/swelling EXAMINATION: US TRIPLEX LOWER EXTREMITY, LEFT CLINICAL INFORMATION: Lower extremity pain and swelling COMPARISON: None available. TECHNIQUE: Color-flow triplex imaging with spectral analysis and compression Doppler were performed on the left lower extremity. FINDINGS: Respiratory variation, normal compression and augmented flow are noted throughout the left lower extremity. The visualized common femoral vein, superficial femoral vein, profunda femoral vein, popliteal vein and midcalf peroneal and posterior tibial venous segments show no evidence of deep venous thrombosis. There is no Worley's cyst. US/US venous duplex LE LT IMPRESSION: No evidence of deep venous thrombosis involving the left lower extremity. Electronically signed by: Micheal Anaya MD 06/20/2025 02:27 PM EST Dictated By: Micheal Anaya MD Signed By: <Electronically signed by Micheal Anaya MD in OV> 06/20/25 1427 DD/ 1400 TD/TT: 06/20/25 1420 [employer] Developer: ALEXEY [facility] External Provider CV VASC ULAR PROCEDURES Final Result [facility] [address] [place] [address] * XR Foot 3+ Views Left (06/20/2025 12:05 PM EST) Anatomical Region Laterality Modality Lower Extremities, Foot Left Radiogra phic Imaging 06/20/2025 12:0 5 PM EST Narrative 06/20/2025 12:15 PM EST [place] [address] XRay Report Signed Patient: Sue Santoro MR#: [id number] 0515 : 1990 Acct:[id number] Age/Sex: 34 / F ADM Date: 06/20/25 Loc: HO.ED Attending Dr: Ordering Physician: Dior Lujan Date of Service: 06/20/25 Procedure(s): XR foot LT min 3V Accession Number(s): [id number] cc: [facility]; Dior Lujan Reason for Exam: painful lump EXAMINATION: XR FOOT 3 OR MORE VIEWS LEFT HISTORY: painful lump COMPARISON: There are no prior studies available for comparison. FINDINGS: Three views of the left foot are submitted. Osseous mineralization is normal. There is no fracture or dislocation. There is mild degenerative change of the intertarsal joints, with joint space narrowing and osteophyte formation. The soft tissues are unremarkable. XR/XR foot LT min 3V IMPRESSION: Mild degenerative change of the intertarsal joints. Electronically signed by: Imer Handley MD 06/20/2025 12:[address] [facility] Dictated By: Imer Handley MD Signed By: <Electronically signed by Imer Handley MD in OV> 06/20/25 1213 DD/ 1205 TD/TT: 06/20/25 1207 [employer] Developer: Procedure Note Donotuseinterpreter, Image - 06/20/2025 [place] [address] XRay Report Signed Patient: Denae Santoro#: [id number] 0515 : 1990Acct:[id number] Age/Sex: 34 / FADM Date: 06/20/25 Loc: HO.ED Attending Dr: Ordering Physician: iDor Lujan Date of Service: 06/20/25 Procedure(s): XR foot LT min 3V Accession Number(s): [id number] cc: [facility]; Dior Lujan Reason for Exam: painful lump EXAMINATION: XR FOOT 3 OR MORE VIEWS LEFT HISTORY: painful lump COMPARISON: There are no prior studies available for comparison. FINDINGS: Three views of the left foot are submitted. Osseous mineralization is normal. There is no fracture or dislocation. There is mild degenerative change of the intertarsal joints, with joint space narrowing and osteophyte formation. The soft tissues are unremarkable. XR/XR foot LT min 3V IMPRESSION: Mild degenerative change of the intertarsal joints. Electronically signed by: Imer Handley MD 06/20/2025 12:13 PM EST Dictated By: Imer Handley MD Signed By: <Electronically signed by Imer Handley MD in OV> 06/20/25 1213 DD/ 1205 TD/TT: 06/20/25 1207 [employer] Developer: [facility] External Provider IMG XR PROCEDURES Final Result from Last 3 Months Insurance [facility] C3 Care Teams Safety Patrol Officer Relationship Specialty Start Date End Date Rupinder Green Exterminator [employer] Folder 04/20/24
--- OUTSIDE RECORDS SUMMARY | 2025-07-11 04:20 | XMS_ITS | Encounter Summary ---
Author Organization [employer] [facility] Address [address] [place] [address] [address] [place] [address] Care Team Providers Care Second Hand Paper Machine Name Role Phone Sarahi Wiggins MD Primary Care Provider [phone] Reason for Visit * Reason Comments Med Refill Encounter Details Date Type Department Care Team ([facility] st Contact Info) Description 06/17/2024 Refill [facility] [address], [place] [phone] Sarahi Wiggins MD [address] [place], [place] [phone] Social History Tobacco Use Types Packs/Day Years [...] on filedocumented in this encounter Care Teams Second Hand Paper Machine Relationship Specialty Start Date End Date Sarahi Wiggins MD [address] [place], [place] [phone] PCP - General Family Medicine 01/26/22 04/15/25 Rupinder Green Watch Engine OperatorGraphic Arts Instructor 04/20/24 documented as of this encounter
== END 2025-07-11 04:18 | disposition left against medical advice (07) ==
LOC: HO.ED 07-11 04:17
PROVIDERS: Physician Assistant; Emergency Provider Emergency Medicine
DX: N39.0 Urinary tract infection, site not specified (principal)
CPT/HCPCS: 36415; 80053; 81001; 81025; 85025; 87086; 87088; 87186; 99283

== ENCOUNTER 2025-07-20 08:47 | Outpatient (AMB) | payer MEDICAID, SELFPAY ==
--- NOTE | 2025-07-20 08:58 | A.OFFVIS_ITS ---
Vital Signs 07/20/25 08:59 Height 5 ft 7 in Weight 193 lb BMI 30.2 Intake Visit Reasons: left foot pain w/ bump on the bottom Intake Note: Sue is a 34 year old female who presents to the office today as a new patient visit referred by [facility] ED for left foot pain w/ bump on the bottom. X-rays obtained and U/S obtained at ED. Pt states the bump is located on the top of her foot and she has had the pain and bump for a few months. she reports a burning sensation with numbness on her toes on the left foot that runs up her leg. She has tried compression socks and taking somebody elses gabapentin medication and has found no relief for her symptoms. Patient reports concerns of sweat pockets in her right foot. Allergies amoxicillin (AMOXICILLIN) Allergy (Intermediate, Verified 07/20/25 09:02) HIVES, hives (moderate) ondansetron (Zofran) Adverse Reaction (Unknown, Verified 07/20/25 09:02) headaches HPI HPI left foot pain w/ bump on the bottom: Details: The patient is a 34 year old female presenting for multiple pedal complaints. Foot Pain and Numbness: The patient reports a growing, painful bump on her left foot, which is accompanied by numbness and a burning sensation in her toes. She states these symptoms preceded the onset of her radiating leg and back pain. The patient experiences numbness that started in her foot and now radiates up to her back. The pain is described as a shooting sensation that worsens with both standing and sitting, as well as with turning movements. She previously went to an emergency room for swelling and was prescribed prednisone, which she found helpful for the pain. Varicose Veins of Lower Extremity: The patient has a history of severe varicose veins that have been worsening, and she reports bruising easily. She has had a prior ultrasound of her veins which was reportedly negative. She sometimes wears compression socks at night when working for swelling but notes they can cause increased numbness to her foot if they are too tight. Calluses and Abnormal Nail Growth: The patient reports developing calluses on one foot and also mentions that her toenails on that foot grow abnormally, appearing thickened and yellow. She has used tjil-meh-ygrrejk antifungal creams and powders without significant improvement. Hyperhidrosis: The patient has a history of what she describes as sweat pockets / clogged lesions on her foot, which are painful and require her to manually clear them after showering. She reports having significant issues with sweaty feet. Medical History: - Varicose veins to both legs, with a history of a normal venous ultrasound - Dry mouth - History of presentation to the emergency department for swelling, which improved with prednisone - The patient does not have a primary care provider and has been on a waiting list. 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 - Footwear: She has difficulty finding comfortable shoes and typically wears items like [place], but also owns Crocs, Birkenstocks, and Skechers slippers. Family History: None discussed. [facility] Medical History Heroin abuse Surgical History History of esophagogastroduodenoscopy (EGD) Family History Father Throat cancer Tuberculosis Mother No problems noted. Brother Autistic disorder Spina bifida of lumbar spine Paternal Grandmother Breast cancer Social History Household Members: Spouse and Children Alcohol intake: never Substance Use Type: Marijuana and Prescription Drugs service: No Current occupational status: unemployed Review of Systems Const All systems reviewed & are unremarkable except as noted in HPI and below Physical Exam Vital Signs: BMI result Body Mass Index 30.2 Extrem Other: *Bilateral Lower Extremity Focused Exam Vascular: DP/PT 2/4, CFT<3s to digits, TG warm to cool, mild edema to the dorsal left 2nd TMT region. extensive varicosities bilateral legs. Derm: hyperkeratotic lesions to distal tips of 3rd digits bilaterally . Dystrophic, discolored, thickened nails Neuro: Protective sensation grossly intact to bilateral lower extremities. MSK: flexion deformity of bilateral 3rd/4th digits. moderate-severe pes planus deformity bilateral feet; miild heel valgus. Assessment & Plan Assessment & Plan (1) Bone spur of left foot: Code(s): M77.52 - Other enthesopathy of left foot and ankle Category: Medical Plan: * Rx bilateral weightbearing foot x-rays * A corticosteroid injection was offered but will be deferred until after the X- ray is reviewed. (2) Arthritis, midfoot: Code(s): M19.079 - Primary osteoarthritis, unspecified ankle and foot Category: Medical Qualifiers: Laterality: bilateral Qualified Code(s): M19.071 - Primary osteoarthritis, right ankle and foot; M19.072 - Primary osteoarthritis, left a nkle and foot Plan: * The patient was counseled on the potential causes of her foot pain and numbness, including a bone spur and nerve irritation, as well as the link between her foot pain disturbing her gait and possibly leading to her sciatica. * Recommendations for appropriate footwear were provided, emphasizing supportive brands like Hoka and New Balance, and confirming that Crocs and Birkenstocks are also good options. (3) Acquired hammer toe of left foot: Code(s): M20.42 - Other hammer toe(s) (acquired), left foot Category: Medical Plan: * Recommended hammertoe crest pad (4) Pitted keratolysis: Code(s): L08.89 - Other specified local infections of the skin and subcutaneous tissue Category: Medical Plan: * Erythromycin cream was prescribed * Rx urea cream 40% for calluses (5) Sciatica of left side: Code(s): M54.32 - Sciatica, left side Category: Medical Plan: * Recommended evaluation and treatment with PCP (6) Tinea unguium: Code(s): B35.1 - Tinea unguium Category: Medical Plan: * Rx Ciclopirox (7) Varicose veins of lower extremity: Code(s): I83.90 - Asymptomatic varicose veins of unspecified lower extremity Category: Medical Qualifiers: Laterality: bilateral Varicose vein complication: pain Qualified Code(s): I83.813 - Varicose veins of bilateral lower extremities with pain Plan: * Referred to vascular / vein clinic * Discussed possible benefit with compression stockings to aid in reducing peripheral edema Plan * The treatment plan was discussed in detail, including the purpose of the X- ray, the role of referrals to a vein specialist and a primary care provider, and instructions for using prescribed topical medications for calluses, suspected nail fungus, and hyperhidrosis. The use of a toe pad to alleviate pressure was also explained. Orders: Orders XR foot LT min 3V 07/20/25 M19.079 - Primary osteoarthritis, unspecified ankle and foot, M20.42 - Other hammer toe(s) (acquired), left foot, M77.52 - Other enthesopathy of left foot and ankle Medications: New methylprednisolone Take 6 tablets on day 1, 5 tablets on day 2, 4 tablets on day 3, 3 tablets on day 4, 2 tablets on day 5, and 1 tablet on day 6. 4 mg PO PER PKG DIR 21 ea 0RF left midfoot pain M19.079 - Primary osteoarthritis, unspecified ankle and foot, M77.52 - Other enthesopathy of left foot and ankle urea 40% apply to both third toes 1 appl topical DAILY 28 grams 3RF callus L84 - Corns and callosities erythromycin-benzoyl peroxide 3-5 % apply to pores on the bottom of both feet 1 appl topical BID 23.3 grams 3RF pitted keratolysis L08.89 - Other specified local infections of the skin and subcutaneous tissue ciclopirox 8% Apply over nails once per day. Wait 30 mins to dry. Remove build up at the end of the week. 1 appl topical BEDTIME 6.6 mL 3RF fungal nails 4 months B35.1 - Tinea unguium Coding Level of Care Code New Pt Level 4 (95638) Diagnoses Bone spur of left foot M77.52 Arthritis of both midfeet M19.071; M19.072 Laterality: bilateral Acquired hammer toe of left foot M20.42 Pitted keratolysis L08.89 Sciatica of left side M54.32 Tinea unguium B35.1 Varicose veins of both lower extremities with pain I83.813 Laterality: bilateral Varicose vein complication: pain Time Spent (min) 45
[2025-07-20 08:59] VITALS: BMI 30.2
--- OUTSIDE RECORDS SUMMARY | 2025-07-20 09:04 | XMS_ITS | Encounter Summary ---
Author Organization [employer] Address [address] [facility] 7t [place] [address] Care Team Providers Care Crystal Machining Coordinator Name Role Phone Unavailable Primary Care Provider Unavailabl e Encounter Details Date Type Department Care Team (Late st Contact Info) Description 06/22/2025 Results Follow-Up [facility] [address] [place] [address] External Provider, [facility] XR Foot 3+ Views Left, Lower Extremity [...] on filedocumented in this encounter Care Teams Crystal Machining Coordinator Relationship Specialty Start Date End Date Rupinder Green Wallcovering HangerBaling Press Operator 04/20/24 documented as of this encounter
--- OUTSIDE RECORDS SUMMARY | 2025-07-20 09:04 | XMS_ITS | Clinical Summary ---
Author Organization [facility] it Address [address] [place] [address] Care Team Providers Care Dry Room Operator Name Role Phone Fede Funke FELICITY Primary Care Provider [phone] Surgical History Surgery Date Site/Laterality Comments OTHER [...] age to complete this topic Care Teams Dry Room Operator Relationship Specialty Start Date End Date Sarahi Funk NP [address] [place] [phone] PCP - General 10/06/16
--- OUTSIDE RECORDS SUMMARY | 2025-07-20 09:04 | XMS_ITS | Clinical Summary ---
Author Organization [employer] Address [address] [facility] [address] [place] [address] Care Team Providers Care Health Information Administrator Name Role Phone Unavailable Primary Care Provider [...] Provider, Generic External Data 06/22/2025 Results Follow-Up [facility] [address] [place] [phone] External Provider, [facility] XR Foot 3+ Views Left, Lower Extremity Venous Duplex 06/20/2025 Orders Only [facility] External Provider, [facility] from Last 3 Months Social History Tobacco [...] AUTO DIFFERENTIAL Routine 07/11/2025 12:37 AM EST CULTURE, URINE, ROUTINE Routine 07/11/2025 12:00 AM EST LOWER EXTREMITY VENOUS DUPLEX LEFT Routine 06/20/2025 2:00 PM EST XR FOOT 3+ VIEWS LEFT Routine 06/20/2025 12:05 PM EST from Last 3 Months Results * (ABNORMAL) Urinalysis, Complete, with Reflex to Culture (07/11/2025 12:37 AM EST) Color Urine Dark Yellow [facility] Appearance Urine Clear [facility] PH 5.5 5.0 - 9.0 [facility] Glucose Urine UA Negative Negative mg/dL [facility] Urine Blood Negative Negative [facility] Specific [place] - Urine >=1.030(H) 1.005 - 1.025 [facility] Urine Protein Negative Neg-Trace mg/dL [facility] Urine Ketones Trace Negative mg/dL [facility] Nitrite Urine Negative Negative [facility] Leukocyte Esterase Urine Trace(A) Negative [facility] RBC Urine 0-2 0 - 2 /HPF [facility] Urine WBC 6-10(A) 0 - 5 /HPF [facility] Urine Squamous Epithelial Cell 6-10 0 - 2 /HPF [facility] Urine Bacteria 3+ None Seen [facility] Hyaline Casts, Urine 0-2 0 - 2 /LPF [facility] 07/11/2025 12:3 7 AM EST 07/11/2025 12:41 AM EST Narrative [facility] - 07/11/2025 1:31 AM EST Urine, Clean Catch us Generic External Data Provider LAB URINE ORDERAB LES Final Result [facility] [address] [place] [phone] * (ABNORMAL) CBC auto differential (07/11/2025 12:37 AM EST) White Blood Count 7.7 4.8 - 10.8 X10*3/uL [facility] Red Blood Count 3.88(L) 4.20 - 5.50 X10*6/uL [facility] Hemoglobin 12.4 12.0 - 16.0 g/dl [facility] Hematocrit 36.4(L) 37.0 - 47.0 % [facility] Mean Corpuscular Volume 93.8 80.0 - 98.0 fL [facility] Mean Corpuscular Hemoglobin 32.0 27.0 - 33.0 pg [facility] Mean Corpuscular HGB Conc 34.1 31.0 - 35.0 g/dl [facility] Red Cell Distribution Width 12.6 11.0 - 16.0 % [facility] Platelet Count 211 160 - 400 X10*3/uL [facility] Mean Platelet Volume 10.0 9.4 - 12.3 fL [facility] Neutrophils Percent Auto 76.3(H) 45 - 73 % [facility] Imm Gran Pct Auto 0.5(H) 0.0 - 0.4 % [facility] Lymphocytes Percent Auto 16.3(L) 20 - 40 % [facility] Monocytes Percent Auto 5.7 2 - 11 % [facility] Eosinophils Percent Auto 0.8 0 - 4 % [facility] Basophils Percent Auto 0.4 0 - 2 % [facility] NRBC Pct Auto 0.0 0.0 - 0.2 /100WBC [facility] Neutrophils Absolute Auto 5.9 2.0 - 8.3 x10*3/uL [facility] Imm Gran Abs Auto 0.04(H) 0.00 - 0.03 X10*3/uL [facility] Lymphocytes Absolute Auto 1.3 1.2 - 4.9 X10*3/uL [facility] Monocytes Absolute Auto 0.4 0.1 - 1.2 X10*3/uL [facility] Eosinophils Absolute Auto 0.1 0.0 - 0.4 X10*3/uL [facility] Basophils Absolute Auto 0.0 0.0 - 0.2 X10*3/uL [facility] NRBC Abs Auto 0.000 0.0 - 0.012 X10*3/uL [facility] 07/11/2025 12:3 7 AM EST 07/11/2025 12:41 AM EST Generic External Data Provider LAB BLOOD ORDERAB LES Final Result Performing Organization Address City/[facility] Co de Phone Number [facility] [address] [place] [phone] * HCG, Qualitative, Urine (07/11/2025 12:37 AM EST) Pathologist [facility] Urine NEGATIVE NEGATIVE [facility] Comment:This test was develo ped to detect early . Falsenegative results may occur after the 5th - 7th week ofpregnancy when using this test method. If clinicallyindicated, consider a serum hCG. 07/11/2025 12:3 7 AM EST 07/11/2025 12:41 AM EST us Generic External Data Provider LAB URINE ORDERAB LES Final Result Performing Organization Address [facility] Co de Phone Number [facility] [address] [place] [phone] * (ABNORMAL) Comprehensive Metabolic Panel (07/11/2025 12:37 AM EST) Pathologist [facility] Sodium 138 135 - 145 mmol/L [facility] Potassium 4.2 3.3 - 5.1 mmol/L [facility] Chloride 107 96 - 108 mmol/L [facility] Carbon Dioxide 24 22 - 29 mmol/L [facility] Anion Gap 11(L) 12 - 20 [facility] Urea Nitrogen (BUN) 7(L) 9 - 16 mg/dL [facility] Creatinine, Serum 0.87 0.5 - 1.4 mg/dL [facility] Creatinine Clr Calc Pharmacy 103.6 [facility] Comment:Provided height and weight: 170.18 cm,87.8 kg.eGFR (calculated from the MDRD study equation) and eCrCl(calculated from the Cockcroft-Gault equation) are based ondifferent parameters and may not yield comparable results.If eCrCl result is absurd, please check patient'sheight/weight. Estimated Glomerular Filt Rate >60 [facility] Comment:Chronic Kidney Disea se: Estimated GFR < 60 mL/min/1.65u8Jodtxu Kidney Disease: Estimated GFR < 15 mL/min/1.73m2 Glucose 83 60 - 115 mg/dL [facility] Calcium 9.0 8.4 - 10.2 mg/dL [facility] Bilirubin, Total 0.6 0.0 - 1.0 mg/dL [facility] Aspartate Amino Transferase 64(H) 5 - 31 U/L [facility] Alanine Aminotransferase 59(H) 0 - 31 U/L [facility] Total Protein 6.9 6.5 - 8.0 g/dL [facility] Albumin Level 4.3 3.5 - 5.0 g/dL [facility] Alkaline Phosphatase 67 39 - 117 U/L [facility] 07/11/2025 12:3 7 AM EST 07/11/2025 12:41 AM EST us Generic External Data Provider LAB BLOOD ORDERAB LES Final Result [facility] [address] [place] [phone] * Culture, Urine, Routine (07/11/2025 12:00 AM EST) Urine Urine specimen obtained by clean catch procedure / Unknown 07/11/2025 07/11/2025 Comment:[facility] - 07/14/2025 7:45 AM EST Escherichia coli Quant > 100,000 cfu/mL Escherichia coli: Ampicillin 4(S) Escherichia coli: Cefazolin (Urine) <=1(S) Escherichia coli: Cefepime <=0.12(S) Escherichia coli: Ceftriaxone <=0.25(S) Escherichia coli: Ciprofloxacin <=0.06(S) Escherichia coli: Gentamicin <=1(S) Escherichia coli: Nitrofurantoin 32(S) Escherichia coli: Trimethoprim/Sulfamethoxazole <=20(S) Specimen Source: Urine clean catch us Generic External Data Provider LAB MICROBIOLOGY - GENERAL ORDERABLES Final Result Performing Organization Address City/State/[facility] Co de Phone Number [facility] [address] [place] [phone] * Lower Extremity Venous Duplex (06/20/2025 2:00 PM EST) 06/20/2025 2:00 PM EST [facility] - 06/20/2025 2:30 PM EST [address] [address] Ultrasound Report Signed Patient: Sue Santoro MR#: [id number] 0515 : 1990 Acct:[id number] Age/Sex: 34 / F ADM Date: 06/20/25 Loc: .ED Attending Dr: Ordering Physician: Dior Lujan Date of Service: 06/20/25 Procedure(s): US venous duplex LE LT Accession Number(s): [id number] cc: [facility]; Dior Lujan Reason for Exam: LE pain/swelling [...] by: Micheal Anaya MD 06/20/2025 02:27 PM [facility] Dictated By: Micheal Anaya MD Signed By: <Electronically signed by Micheal Anaya MD in OV> 06/20/25 1427 DD/ 1400 TD/TT: 06/20/25 1420 Supervisor Engine Assembly: ALEXEY Procedure Note Donotuseinterpreter, Image - 06/20/2025 [place] [address] Ultrasound Report Signed Patient: Denae Santoro#: [id number] 0515 : 1990Acct:[id number] Age/Sex: 34 / FADM Date: 06/20/25 Loc: .ED Attending Dr: Ordering Physician: Dior Lujan Date of Service: 06/20/25 Procedure(s): US venous duplex LE LT Accession Number(s): [id number] cc: [facility]; Dior Lujan Reason for Exam: LE pain/swelling [...] Micheal Anaya MD 06/20/2025 02:27 PM EST RP Dictated By: Micheal Anaya MD Signed By: <Electronically signed by Micheal Anaya MD in OV> 06/20/25 1427 DD/ 1400 TD/TT: 06/20/25 1420 Supervisor Engine Assembly: ALEXEY us [facility] External Provider CV VASC ULAR PROCEDURES Final Result Performing Organization Address City/State/[facility] Co de Phone Number [facility] [address] [place] [phone] * XR Foot 3+ Views Left (06/20/2025 12:05 PM EST) Anatomical Region Laterality Modality Lower Extremities, Foot Left Radiogra phic Imaging 06/20/2025 12:0 5 PM EST Narrative 06/20/2025 12:15 PM EST [address] [address] XRay Report Signed Patient: Sue Santoro MR#: [id number] : 1990 Acct:[id number] Age/Sex: 34 / F ADM Date: 06/20/25 Loc: HO.ED Attending Dr: Ordering Physician: Dior Lujan Date of Service: 06/20/25 Procedure(s): XR foot LT min 3V Accession Number(s): [id number] cc: [facility]; Dior Lujan Reason for Exam: painful lump [...] Imer Handley MD 06/20/2025 12:13 PM EST RP Dictated By: Imer Handley MD Signed By: <Electronically signed by Imer Handley MD in OV> 06/20/25 1213 DD/ 1205 TD/TT: 06/20/25 120 Supervisor Engine Assembly: Procedure Note Phyllis, Image - 06/20/[address] [address] XRay Report Signed Patient: Clemencia SantoroR#: [id number] 0515 : 1990Acct:[id number] Age/Sex: 34 / FADM Date: 06/20/25 Loc: HO.ED Attending Dr: Ordering Physician: Dior Lujan Date of Service: 06/20/25 Procedure(s): XR foot LT min 3V Accession Number(s): [id number] cc: [facility]; Dior Lujan Reason for Exam: painful lump [...] by: Imer Handley MD 06/20/2025 12:13 PM [facility] Dictated By: Imer Handley MD Signed By: <Electronically signed by Imer Handley MD in OV> 06/20/25 1213 DD/ 1205 TD/TT: 06/20/25 1207 Supervisor Engine Assembly: [facility] External Provider IMG XR PROCEDURES Final Result from Last 3 Months Insurance [facility] C3 Care Teams Health Information Administrator Relationship Specialty Start Date End Date Rupinder Green Personal Care AttendantBiometric Technician 04/20/24
--- OUTSIDE RECORDS SUMMARY | 2025-07-20 09:04 | XMS_ITS | Encounter Summary ---
Author Organization [facility] Address [address] [place] [address] 7t [place] [address] Care Team Providers Care Room Server Name Role Phone Sarahi Wiggins MD Primary Care Provider Reason for Visit * Reason Comments Med Refill Encounter Details Date Type Department Care Team ([facility] st Contact Info) Description 06/17/2024 Refill [facility] [address] [place], [place] [phone] Sarahi Wiggins MD [address], [place] [phone] Social History Tobacco Use Types Packs/Day Years [...] on filedocumented in this encounter Care Teams Room Server Relationship Specialty Start Date End Date Sarahi Wiggins MD [address], [place] [phone] PCP - General Family Medicine 01/26/22 04/15/25 Rupinder Green Electronics EngineerBusiness Intelligence Director 04/20/24 documented as of this encounter
== END 2025-07-20 09:22 | disposition home or self-care (01) ==
LOC: HO.HPODS 08:47
PROVIDERS: Visit Provider Student in an Organized Health Care Education/Training Program
DX: M77.52 Other enthesopathy of left foot and ankle (principal); M19.071 Primary osteoarthritis, right ankle and foot; M19.072 Primary osteoarthritis, left ankle and foot; M20.42 Other hammer toe(s) (acquired), left foot; L08.89 Other specified local infections of the skin and subcutaneous tissue; M54.32 Sciatica, left side; B35.1 Tinea unguium; I83.813 Varicose veins of bilateral lower extremities with pain
CPT/HCPCS: 99204

== ENCOUNTER → 2025-07-20 08:47 | Outpatient (BNVA) | payer MEDICAID, SELFPAY | PROVIDERS: Visit Provider Student in an Organized Health Care Education/Training Program | DX: M77.52 Other enthesopathy of left foot and ankle (principal); M19.071 Primary osteoarthritis, right ankle and foot; M19.072 Primary osteoarthritis, left ankle and foot; M20.42 Other hammer toe(s) (acquired), left foot; L08.89 Other specified local infections of the skin and subcutaneous tissue; M54.32 Sciatica, left side; B35.1 Tinea unguium; I83.813 Varicose veins of bilateral lower extremities with pain | CPT/HCPCS: 99202 ==

== ENCOUNTER → 2025-08-01 21:50 | Outpatient (BNV) | payer MEDICAID, SELFPAY | PROVIDERS: Emergency Provider Emergency Medicine; Visit Provider Internal Medicine | DX: R07.9 Chest pain, unspecified (principal) | CPT/HCPCS: 93010 ==

== ENCOUNTER → 2025-08-01 22:12 | Outpatient (BNV) | payer MEDICAID, SELFPAY | PROVIDERS: Visit Provider Specialist | DX: R07.9 Chest pain, unspecified (principal); R05.9 Cough, unspecified; R06.02 Shortness of breath | CPT/HCPCS: 71046 ==